=== PATIENT | male | born 1970 | race Caucasian/White ===

== ENCOUNTER 2017-03-11 03:48 | Inpatient (IN) | payer SELFPAY ==
[2017-03-11] MEDS ORDERED: Piperacillin/Tazobactam 3.375 GM in Sodium Chloride 0.9% 100 ML IVPB SCH ×2 (04:30→12:00)
[2017-03-11 05:23] LABS: Lactic Acid - Sepsis 0.6 mmol/L (0.5-2.2)
[2017-03-11] MEDS ORDERED: Nicotine 14 MG PATCH TD PRN (06:22)
[2017-03-11] MEDS ORDERED: Ondansetron ODT 4 MG TAB PO PRN (06:22)
[2017-03-11] MEDS ORDERED: Acetaminophen 325 MG TAB PO PRN (06:22)
[2017-03-11 06:54] VITALS: BMI 21.5
[2017-03-11] MEDS: Sodium Chloride 0.9% 1,000 ML IV SCH ×3 (08:30→20:26)
--- NOTE | 2017-03-11 11:04 | ULT ---
DISTAL HAND SOFT TISSUE ULTRASOUND: History: Concern for abscess. FINDINGS: There is a 2.2 x 1.3 cm residual abscess within the dorsal soft tissues of the right hand. IMPRESSION: No subcutaneous abscess of the right hand. POS: NANH
[2017-03-11] MEDS ORDERED: Famotidine/PF 20 mg/2ml Vial SLOW IVP PRN ×2 (11:28→12:15)
[2017-03-11 11:35] LABS: Amphetamine Detected (NotDetected); Methadone Not Detected (NotDetected); Methamphetamine Detected (NotDetected)
[2017-03-11] MEDS: Vancomycin HCl 1 GM in Premix Bag 1 BAG IVPB SCH (13:17)
--- NOTE | 2017-03-11 14:03 | HP-2 ---
CODE STATUS: FULL. PRIMARY CARE PHYSICIAN: Nan bennett, PCP in [place]. ATTENDING: Alfred Wong M.D. RESIDENT: Andie Kay D.O. HISTORIAN: Patient. CHIEF COMPLAINT: Right hand drainage. HISTORY OF PRESENT ILLNESS: The patient is a 46-year-old male with no past medical history who presented to the ED after being seen in the urgent care setting twice for right hand drainage and associated pain and swelling onset a few days ago. Started out as a small ant bite and initially was treated with topical antibiotics and then Keflex. The redness around the area swelling continued to progress and the patient went back to the ED and was transferred here. He denies any fever at home. No chills. No nausea or vomiting. He was given morphine 4 mg, Zofran 4 mg, vancomycin 2 gm, 1 liter normal saline, and Toradol 30 mg and in our ED was started on Zosyn 3.375 grams daily for now. PAST MEDICAL HISTORY: None. PAST SURGICAL HISTORY: Appendectomy. ALLERGIES: No known drug allergies. MEDICATIONS: None. FAMILY HISTORY: No coronary artery disease. SOCIAL HISTORY: Smokes about 1 pack per day for the last 20 years, alcohol drinks socially, drugs denies. REVIEW OF SYSTEM: A 12-point review of systems was performed and found to be positive for only those mentioned in the HPI. All others were negative. PHYSICAL EXAMINATION: VITAL SIGNS: Blood pressure 137/83, pulse 101, respiratory rate 16, T-max 98.7 , pulse ox 99% on room air and currently is 68.84 kilograms. GENERAL: The patient is alert and oriented x4, in no acute distress and appropriately interactive. HEENT: PERRLA, EOMI. ENT: Oropharynx within normal limits. NECK: Supple, without lymphadenopathy. Does have of the right axilla. CARDIOVASCULAR: Regular rate and rhythm. No murmurs, gallops or rubs. RESPIRATORY: Normal effort. LUNGS: Clear to auscultation bilaterally. SKIN: Warm and dry. ABDOMEN: Soft, nontender. MUSCULOSKELETAL: Structure within normal. Tone within normal limits. NEUROLOGIC: No focal deficits. EXTREMITIES: No clubbing or cyanosis. There is edema from fingertips down to just distal of the elbow in the anterior position. Significant edema from the fingertips to the forearm with associated erythema and 3 inch diameter bruising area with central serous drainage from 3 different sites, it was indurated in this area. LABORATORY DATA: CBC was performed and had white blood cell count of 17,000, hemoglobin 13, hematocrit 24, platelets 268. Chemistry: Sodium 140, potassium 4.4, chloride 107, CO2 of 23, BUN 18, creatinine 1.01, glucose 110, GFR 74, CA 6.0. Lactic acid 0.8 went down to 0.6. ASSESSMENT AND PLAN: 1. Sepsis secondary to acute right hand cellulitis - continue vancomycin and Zosyn, 1 liter normal saline in the emergency department and IV fluids at maintenance concentration. 2. Leukocytosis secondary to #1. 3. Anemia, likely chronic in nature. 4. Thrombophlebitis with the right arm thrombosis. DISPOSITION AND LENGTH OF HOSPITAL STAY: One to two days. Symptomatic medications will be provided. History and physical exam as well as management were discussed with Dr. Alfred Wong. Patient seen on rounds with residents. I agree with tan portions of the H&P, plan as noted above. His hand looks to have some fluid collection and possible necrosis. He believes that he was bitten by and insect, although he also is a substance abuser with methamphetamine. We will treat with antibiotics as noted, but also get hand surgery involved. ALEXANDRE Wong MD [facility] CENTERUrsula
[2017-03-11] MEDS ORDERED: Dexamethasone 20 MG/5 ML VIAL ONE (15:23)
[2017-03-11] MEDS ORDERED: Propofol 200 MG/20 ML VIAL ONE (15:23)
[2017-03-11] MEDS ORDERED: Ketorolac Tromethamine 30 MG/ML VIAL ONE ×2 (15:23→19:17)
[2017-03-11] MEDS ORDERED: Lidocaine 1% PF 5 ML VIAL ONE (15:23)
[2017-03-11] MEDS ORDERED: Ondansetron HCl/PF 4 MG/2 ML Vial ONE (15:23)
[2017-03-11] MEDS ORDERED: Sodium Chloride 0.9% 30 ML ONE (16:51)
[2017-03-11] MEDS ORDERED: Fentanyl 100 MCG/2 ML VIAL ONE ×3 (17:26→19:29)
[2017-03-11] MEDS ORDERED: Ketorolac Tromethamine 30 MG/ML VIAL IM SCH (19:30)
[2017-03-11] MEDS ORDERED: Meperidine HCl/PF 25 MG/ML VIAL IM PRN (19:34)
[2017-03-11] MEDS ORDERED: Promethazine HCl 25 MG/ML VIAL IM PRN (19:35)
[2017-03-11] MEDS ORDERED: Pregabalin 50 MG CAP PO SCH (19:45)
[2017-03-11] MEDS ORDERED: Vancomycin HCl 1 GM in Premix Bag 1 BAG IVPB SCH (21:00)
[2017-03-11] MEDS: Gentamicin Sulfate 80 MG in Premix Bag 1 BAG IVPB SCH (22:06)
[2017-03-11] MEDS: Pregabalin 50 MG CAP PO SCH (22:07)
[2017-03-11] MEDS: Ketorolac Tromethamine 30 MG/ML VIAL IVP SCH (22:07)
[2017-03-12] MEDS: Vancomycin HCl 1 GM in Premix Bag 1 BAG IVPB SCH ×4 (02:29→22:54)
[2017-03-12] MEDS: Ketorolac Tromethamine 30 MG/ML VIAL IVP SCH ×4 (05:04→22:53)
[2017-03-12] MEDS: Gentamicin Sulfate 80 MG in Premix Bag 1 BAG IVPB SCH ×3 (05:04→20:41)
[2017-03-12] MEDS: Sodium Chloride 0.9% 1,000 ML IV SCH ×3 (05:04→15:52)
[2017-03-12] MEDS: Pregabalin 50 MG CAP PO SCH ×3 (05:05→20:42)
--- NOTE | 2017-03-12 06:00 | PDOC.FM ---
- Subjective Subjective: Patient states his hand feels better and he can feel that it is less swollen. He also has admitted that he used meth on Thursday. He states he doesn't normally and shouldn't use that stuff going forward. He denies chest pain, sob, n/v/d. - Objective Vital Signs & Weight: Vital Signs (12 hours) Temp Pulse Resp BP Pulse Ox 03/11/17 21:30 97.9 F 92 20 130/75 98 03/11/17 21:00 96 18 128/78 99 03/11/17 20:30 98 20 131/80 99 03/11/17 20:00 97.7 F 89 20 120/80 97 Weight Weight 68.039 kg I&O: 03/10/17 03/11/17 03/12/17 06:59 06:59 06:59 Intake Total 1640 Balance 1640 Result Diagrams: 03/12/17 05:07 03/12/17 05:07 <Juan Morfin - Last Filed: 03/12/17 08:12> - Objective Vital Signs & Weight: Vital Signs (12 hours) Temp Pulse Resp BP Pulse Ox 03/12/17 08:32 97.9 F 78 18 118/69 96 Weight Weight 150 lb I&O: 03/11/17 03/12/17 03/13/17 06:59 06:59 06:59 Intake Total 1640 Balance 1640 Result Diagrams: 03/12/17 05:07 03/12/17 05:07 <Alfred Wong - Last Filed: 03/12/17 10:42> Phys Exam - Physical Examination HEENT: moist MMs Neck: no nodes, supple Respiratory: no wheezing, clear to auscultation bilateral Cardiovascular: RRR, no significant murmur Gastrointestinal: soft, no distention Musculoskeletal: no edema, pulses present Right forearm/hand bandaged following surgery. Neurological: non-focal, normal sensation, moves all 4 limbs Psychiatric: normal affect, A&O x 3 Skin: no rash <Juan Morfin - Last Filed: 03/12/17 08:12> Dx/Plan (1) Cellulitis of right hand Code(s): L03.113 - CELLULITIS OF RIGHT UPPER LIMB Status: Acute Plan: Dr. Mayfield with Hand Surgery consulted, appreciate his recs -Went for surgery yesterday -Will continue Vancomycin and Gentamicin -Will follow Ortho recs (2) Polysubstance abuse Code(s): F19.10 - OTHER PSYCHOACTIVE SUBSTANCE ABUSE, UNCOMPLICATED Status: Acute Plan: -UDS positive -Counseled on quitting. -Will monitor for signs and symptoms of withdrawal. - Plan Plan: Will continue IV antibiotics <Juan Morfin - Last Filed: 03/12/17 08:12> Attending Addendum - Attending Addendum I personally evaluated the patient and discussed the management with Dr. Morfin I agree with the History, Examination, Assessment and Plan documented above with any addition or exceptions noted below. Patient's hand is better after I&D. He is growing staff. UDS shows methamphetamine, so he may be skin popping. We will continue with Vanc and Gent for now. Switch to po when his wound looks better. <Alfred Wong - Last Filed: 03/12/17 10:42>
--- NOTE | 2017-03-12 06:16 | OP ---
DATE OF SURGERY: 03/11/2017 PREOPERATIVE DIAGNOSIS: Right wrist abscess, over the first dorsal compartment. FINDINGS: Multiloculated well-preserved cavity with gross purulence that was minimum but marked necr osis of tissue down to and surrounding the entire tendons of the first dorsal compartment on the supe rficial layer and retinaculum. PROCEDURE PERFORMED: 1. Incision and drainage of abscess. 2. Debridement of wound to include the following: A. The layers were skin, dermis and epidermis, subcutaneous fat, and the entire abscess cavity. B. Excisional technique. C. We used tenotomy scissors, [place] blade, 11 blade Bard-Drew knife, curette, and then, we irriga beth with 3 liters normal saline and Pulsavac pressure and it was excisional technique. D. There was definite mucopurulence and infection found. CULTURES SENT: Yes, first of the abscess drainage which was purulence and then secondly, most of the abscess cavity itself involving dermis, epidermis, fat, and tissue as well as paratenon. INDICATIONS: The patient reports 3-day onset of what she considers to be a spider bite and then deve lopment of erythema and abscess, but this patient also had very positive drug screening for methamphe tamines and amphetamines, so we feel etiology is not completely confirmed even with the procedure. DESCRIPTION OF PROCEDURE: After the limb was prepped and draped, time out was done appropriately. T he limb was exsanguinated. He then had the previous 4 mm puncture wound found, we made a zigzag inci mario 3 cm proximal, 2.5 cm distal to this site, carried through the skin and subcutaneous tissue, and there was marked induration and maceration, immediate mucopurulence escaped; we cultured this and se nt to lab. Then, we began a series of superficial to deep removal of anything that looked infected, and this included a circumferential area of 2 cm of skin that was 2 cm long followed by the abscess c avity itself subcutaneously all the way around the incision and then down to its depth where it was o n top of the retinaculum. We found the large branches of the superficial radial nerve retracting the m safely and then working around them to do this very intricate dissection. Once this debridement wa s done, the patient had the Pulsavac infectious waste technician to irrigate the wound with 3 liters of normal saline u nder Pulsavac pressure with antibiotics inside. We then sent the specimen off for cultures as we did the , normal saline soaked 4 x 4s x2 were placed in the wound and packed in the interspaces angélica ing it easier for later wound dressing changes. The patient was awakened and left the operating room without evidence of anesthetic or operative complication.
[2017-03-12 06:35] LABS: #Lymphocytes 0.7 thou/uL (1.20-3.40); #Monocytes 0.3 thou/uL (0.11-0.59); #Neutrophils 8.4 thou/uL (1.40-6.50); %Basophils 0.2 % (0.0-1.0); %Eosinophils 0.3 % (0.0-10.0); %Monocytes 2.8 % (0.0-10.0); Hematocrit 33.4 % (42.0-52.0); Red Blood Cell (RBC) Count 3.29 mill/uL (4.70-6.10); White Blood Cell (WBC) Count 9.4 thou/uL (4.8-10.8)
[2017-03-12 06:46] LABS: Anion Gap 9 mmol/L (10-20); BUN (Urea Nitrogen) 14 mg/dL (8.9-20.6); Calc. Creatinine Clearance 106 mL/min (70-130); Calcium 8.8 mg/dL (7.8-10.44); Carbon Dioxide 25 mmol/L (22-29); Chloride 106 mmol/L (98-107); Estimated GFR-MDRD Greater than 90
[2017-03-12] MEDS: HYDROcodone/Acetaminophen 7.5/325 mg Tablet PO PRN (09:16)
[2017-03-12 13:44] LABS: Vancomycin, Trough 8.9 ug/mL
[2017-03-12] MEDS: Morphine 4 MG/ML VIAL SLOW IVP PRN (19:09)
[2017-03-13] MEDS: Sodium Chloride 0.9% 1,000 ML IV SCH ×4 (01:01→20:09)
[2017-03-13] MEDS: Ketorolac Tromethamine 30 MG/ML VIAL IVP SCH ×4 (05:36→22:53)
[2017-03-13] MEDS: Pregabalin 50 MG CAP PO SCH ×3 (05:37→21:13)
[2017-03-13] MEDS: Gentamicin Sulfate 80 MG in Premix Bag 1 BAG IVPB SCH (05:38)
[2017-03-13 05:43] LABS: #Eosinphils 0.2 thou/uL (0.0-0.7); #Lymphocytes 2.1 thou/uL (1.20-3.40); #Monocytes 0.8 thou/uL (0.11-0.59); #Neutrophils 6.6 thou/uL (1.40-6.50); %Basophils 0.5 % (0.0-1.0); %Eosinophils 1.9 % (0.0-10.0); %Lymphocytes 21.9 % (21.0-51.0); %Monocytes 8.1 % (0.0-10.0); Hematocrit 34.2 % (42.0-52.0); Mean Platelet Volume 8.3 fL (7.4-10.4); Red Blood Cell (RBC) Count 3.34 mill/uL (4.70-6.10); White Blood Cell (WBC) Count 9.7 thou/uL (4.8-10.8)
[2017-03-13 06:05] LABS: Anion Gap 9 mmol/L (10-20); BUN (Urea Nitrogen) 14 mg/dL (8.9-20.6); Calc. Creatinine Clearance 107 mL/min (70-130); Calcium 8.5 mg/dL (7.8-10.44); Carbon Dioxide 24 mmol/L (22-29); Chloride 109 mmol/L (98-107); Estimated GFR-MDRD Greater than 90
--- NOTE | 2017-03-13 06:07 | PDOC.FM ---
- Subjective Subjective: Patient had a good night. He states that he is ready to go home. He has had no pain. He denies any chest pain, sob, n/v/d. - Objective Vital Signs & Weight: Vital Signs (12 hours) Temp Pulse Resp BP Pulse Ox 03/12/17 20:00 98 F 95 18 135/76 100 Weight Weight 68.039 kg I&O: 03/11/17 03/12/17 03/13/17 06:59 06:59 06:59 Intake Total 1640 1496 Balance 1640 1496 Result Diagrams: 03/13/17 04:50 03/13/17 04:50 <Juan Morfin - Last Filed: 03/13/17 08:06> - Objective Vital Signs & Weight: Vital Signs (12 hours) Temp Pulse Resp BP Pulse Ox 03/13/17 08:00 98.1 F 79 18 143/90 H 96 Weight Weight 150 lb I&O: 03/12/17 03/13/17 03/14/17 06:59 06:59 06:59 Intake Total 1640 1496 Balance 1640 1496 Result Diagrams: 03/13/17 04:50 03/13/17 04:50 <Alfred Wong - Last Filed: 03/13/17 10:12> Phys Exam - Physical Examination HEENT: PERRLA, moist MMs Neck: no nodes, no JVD, supple Respiratory: no wheezing, clear to auscultation bilateral Cardiovascular: RRR, no significant murmur Gastrointestinal: soft, non-tender, no distention, positive bowel sounds Musculoskeletal: no edema, pulses present Right arm is bandaged from surgery. Neurovascular exam is normal. Neurological: non-focal, normal sensation, moves all 4 limbs Lymphatic: no nodes Psychiatric: normal affect, A&O x 3 Skin: no rash <Juan Morfin - Last Filed: 03/13/17 08:06> Dx/Plan (1) Cellulitis of right hand Code(s): L03.113 - CELLULITIS OF RIGHT UPPER LIMB Status: Acute Plan: Dr. Mayfield with Hand Surgery consulted, appreciate his recs -Went for surgery yesterday -Will continue Vancomycin and Gentamicin -Will follow Ortho recs -Sensitive to Bactrim, will transition to Oral antibiotics and can be discharged with follow up as an outpatient (2) Polysubstance abuse Code(s): F19.10 - OTHER PSYCHOACTIVE SUBSTANCE ABUSE, UNCOMPLICATED Status: Acute Plan: -UDS positive -Counseled on quitting. -Will monitor for signs and symptoms of withdrawal. - Plan Plan: Transition to oral antibiotics and discharge planning can be made from there. <Juan Morfin - Last Filed: 03/13/17 08:06> Attending Addendum - Attending Addendum I personally evaluated the patient and discussed the management with Dr. Morfin I agree with the History, Examination, Assessment and Plan documented above with any addition or exceptions noted below. Patient continues to improve. Surgery wants a wound vac and thinks he might need a skin graft. He will be here overnight. Culture is MRSA sensitive to TMP/ SMZ. He will go home on this for a week. <Alfred Wong - Last Filed: 03/13/17 10:12>
[2017-03-13] MEDS: Morphine 4 MG/ML VIAL SLOW IVP PRN ×2 (09:04→16:59)
[2017-03-13] MEDS: Vancomycin HCl 1 GM in Premix Bag 1 BAG IVPB SCH ×3 (09:06→22:52)
[2017-03-13] MEDS: HYDROcodone/Acetaminophen 7.5/325 mg Tablet PO PRN (11:49)
[2017-03-13 15:32] LABS: Vancomycin, Trough 18.8 ug/mL
[2017-03-13] MEDS: Polyethylene Glycol 3350 17 GM Packet PO PRN (20:09)
[2017-03-14] MEDS: Sodium Chloride 0.9% 1,000 ML IV SCH ×5 (04:14→21:06)
[2017-03-14 05:29] LABS: #Basophils 0.1 thou/uL (0.0-0.2); #Eosinphils 0.3 thou/uL (0.0-0.7); #Lymphocytes 1.9 thou/uL (1.20-3.40); #Monocytes 0.8 thou/uL (0.11-0.59); #Neutrophils 4.8 thou/uL (1.40-6.50); %Basophils 0.8 % (0.0-1.0); %Eosinophils 4.1 % (0.0-10.0); %Lymphocytes 23.7 % (21.0-51.0); %Monocytes 10.3 % (0.0-10.0); Hematocrit 33.6 % (42.0-52.0); Mean Platelet Volume 8.1 fL (7.4-10.4); Red Blood Cell (RBC) Count 3.31 mill/uL (4.70-6.10); White Blood Cell (WBC) Count 7.8 thou/uL (4.8-10.8)
[2017-03-14] MEDS: Ketorolac Tromethamine 30 MG/ML VIAL IVP SCH ×3 (05:39→17:40)
[2017-03-14] MEDS: Pregabalin 50 MG CAP PO SCH ×2 (05:40→15:51)
[2017-03-14] MEDS: Polyethylene Glycol 3350 17 GM Packet PO PRN (05:49)
[2017-03-14 06:49] LABS: Anion Gap 10 mmol/L (10-20); BUN (Urea Nitrogen) 13 mg/dL (8.9-20.6); Calc. Creatinine Clearance 109 mL/min (70-130); Calcium 8.2 mg/dL (7.8-10.44); Carbon Dioxide 25 mmol/L (22-29); Chloride 107 mmol/L (98-107); Estimated GFR-MDRD Greater than 90
--- NOTE | 2017-03-14 07:41 | PDOC.FM ---
- Subjective Subjective: 46 yo M s/p debridement of abscess. Pt has wound dressing in place over distal RUE. He had no acute events overnight. Denies CP, SOB, NVD. Does c/o bloating and constipation. Attempted to talk to the pt about op wound care after wound vac care is established and he is cleared by hand surgeon. Pt became agitated stating "y'all are gonna cause me to lose my damn arm" along with numerous other profanities. It was explained to pt that he would not be sent home in an unstable condition and all wound care amenities would be set up prior to discharge. Throughout the encounter pt began pacing around the room and appeared restless and agitated. - Objective Vital Signs & Weight: Vital Signs (12 hours) Temp Pulse Resp BP Pulse Ox 03/14/17 05:33 99.7 F H 88 18 135/85 95 03/13/17 20:00 97.9 F 92 20 129/77 95 Weight Admit Weight 68.039 kg Weight 68.039 kg I&O: 03/13/17 03/14/17 03/15/17 06:59 06:59 06:59 Intake Total 1496 1749 Balance 1496 1749 Result Diagrams: 03/14/17 04:46 03/14/17 04:46 <Abram Luke - Last Filed: 03/14/17 07:29> - Objective Vital Signs & Weight: Vital Signs (12 hours) Temp Pulse Resp BP Pulse Ox 03/14/17 08:01 98.3 F 80 18 145/87 H 95 03/14/17 08:00 98.3 F 80 18 03/14/17 05:33 99.7 F H 88 18 135/85 95 Weight Admit Weight 150 lb Weight 150 lb I&O: 03/13/17 03/14/17 03/15/17 06:59 06:59 06:59 Intake Total 1496 1749 Balance 1496 1749 Result Diagrams: 03/14/17 04:46 03/14/17 04:46 <Alfred Wong - Last Filed: 03/14/17 11:09> Phys Exam - Physical Examination Constitutional: NAD agitated, restless Respiratory: no wheezing, no rales, no rhonchi, clear to auscultation bilateral Cardiovascular: RRR, no significant murmur, no rub Gastrointestinal: soft, non-tender, no distention, positive bowel sounds edemetous distal rue, wound dressing in place Neurological: non-focal, moves all 4 limbs Deviation from normal: agitated Skin: no rash <Abram Luke - Last Filed: 03/14/17 07:29> Dx/Plan (1) Cellulitis of right hand Code(s): L03.113 - CELLULITIS OF RIGHT UPPER LIMB Status: Acute (2) Polysubstance abuse Code(s): F19.10 - OTHER PSYCHOACTIVE SUBSTANCE ABUSE, UNCOMPLICATED Status: Acute - Plan Plan: -pt is awaiting wound vac and established op wound care -continue IV abx for now -vitals remains stable -leukocytosis resolved -debt management counselor on cessation of drugs as this is likely cause of his extensive cellulitis -once op wound care and wound vac is established, pt is stable for DC, pending surgery recs <Abram Luke - Last Filed: 03/14/17 07:29> Attending Addendum - Attending Addendum I personally evaluated the patient and discussed the management with Dr. Luke I agree with the History, Examination, Assessment and Plan documented above with any addition or exceptions noted below. Patient is much more agitated today. We are concerned about drug withdrawal. Hand is doing reasonably well. We are waiting for instructions from wound care related to the hand and outpatient treatment of the hand. <Alfred Wong - Last Filed: 03/14/17 11:09>
[2017-03-14] MEDS: Vancomycin HCl 1 GM in Premix Bag 1 BAG IVPB SCH ×2 (07:54→15:51)
[2017-03-14] MEDS: Morphine 4 MG/ML VIAL SLOW IVP PRN ×2 (10:08→19:11)
[2017-03-14] MEDS: Bisacodyl 5 MG TAB PO PRN (11:43)
[2017-03-14] MEDS: HYDROcodone/Acetaminophen 7.5/325 mg Tablet PO PRN (17:47)
[2017-03-15] MEDS: Vancomycin HCl 1 GM in Premix Bag 1 BAG IVPB SCH ×4 (00:25→23:17)
[2017-03-15] MEDS: Ketorolac Tromethamine 30 MG/ML VIAL IVP SCH ×5 (00:25→23:17)
[2017-03-15] MEDS: Pregabalin 50 MG CAP PO SCH ×4 (00:28→20:52)
[2017-03-15] MEDS: HYDROcodone/Acetaminophen 7.5/325 mg Tablet PO PRN ×4 (04:51→20:52)
[2017-03-15] MEDS: Sodium Chloride 0.9% 1,000 ML IV SCH ×5 (04:55→23:16)
[2017-03-15 05:46] LABS: #Eosinphils 0.4 thou/uL (0.0-0.7); #Lymphocytes 1.6 thou/uL (1.20-3.40); #Monocytes 0.8 thou/uL (0.11-0.59); %Basophils 0.7 % (0.0-1.0); %Eosinophils 5.3 % (0.0-10.0); %Lymphocytes 23.1 % (21.0-51.0); %Monocytes 11.5 % (0.0-10.0); Hematocrit 35.4 % (42.0-52.0); Mean Platelet Volume 8.4 fL (7.4-10.4); White Blood Cell (WBC) Count 6.8 thou/uL (4.8-10.8)
--- NOTE | 2017-03-15 05:50 | PDOC.FM ---
- Subjective Subjective: Patient doing well this AM. No significant overnight events. He did complain about not getting scheduled pain medications. I informed him that his pain meds were not scheduled so that he could have his pain evaluated periodically. He can ask for pain medications when he needs them. He understood. Patient denies chest pain, shortness of breath, fever, or chills. - Objective MAR Reviewed: Yes Vital Signs & Weight: Vital Signs (12 hours) Temp Pulse Resp BP Pulse Ox 03/14/17 20:00 98.5 F 88 16 131/79 95 Weight Admit Weight 68.039 kg Weight 68.039 kg I&O: 03/13/17 03/14/17 03/15/17 06:59 06:59 06:59 Intake Total 1496 1749 3480 Balance 1496 1749 3480 Result Diagrams: 03/15/17 04:52 03/15/17 04:52 EKG Reviewed by me: No Radiology Reviewed by me: Yes <Ramonita Fabian - Last Filed: 03/15/17 07:37> - Objective Vital Signs & Weight: Vital Signs (12 hours) Temp Pulse Resp BP Pulse Ox 03/15/17 08:00 97.7 F 80 18 142/89 H 94 L 03/15/17 04:00 98.3 F 88 16 151/81 H 95 Weight Admit Weight 150 lb Weight 150 lb I&O: 03/14/17 03/15/17 03/16/17 06:59 06:59 06:59 Intake Total 1749 5560 Balance 1749 5560 Result Diagrams: 03/15/17 04:52 03/15/17 04:52 <Alfred Wong - Last Filed: 03/15/17 09:50> Phys Exam - Physical Examination Constitutional: NAD HEENT: moist MMs, sclera anicteric Neck: supple Respiratory: no wheezing, no rales, no rhonchi, clear to auscultation bilateral Cardiovascular: RRR, no significant murmur Gastrointestinal: soft, non-tender, no distention, positive bowel sounds Musculoskeletal: no edema, pulses present Neurological: non-focal, moves all 4 limbs Psychiatric: A&O x 3 Skin: cap refill <2 seconds Deviation from normal: wound vac in place on RUE. AYALA bandage clean, dry. <Ramonita Fabian - Last Filed: 03/15/17 07:37> Dx/Plan (1) Cellulitis of right hand Code(s): L03.113 - CELLULITIS OF RIGHT UPPER LIMB Status: Acute (2) Polysubstance abuse Code(s): F19.10 - OTHER PSYCHOACTIVE SUBSTANCE ABUSE, UNCOMPLICATED Status: Acute - Plan Plan: - Plan Plan: Cellulitis of Right Hand: -wound vac set up for outpatient -continue IV abx per Dr. Mayfield -vitals remains stable; no signs of systemic infection -leukocytosis resolved -pain control -hand surgeon consulted; appreciate recs Polysubstance abuse: -relationship counselor on cessation of drugs as this is likely cause of his extensive cellulitis Dispo: Will await Dr. Mayfield's recs regarding discharge. Patient may need washout of wound prior to discharge. <Ramonita Fabian - Last Filed: 03/15/17 07:37> Attending Addendum - Attending Addendum I personally evaluated the patient and discussed the management with Dr. Fabian I agree with the History, Examination, Assessment and Plan documented above. <Alfred Wong - Last Filed: 03/15/17 09:50>
[2017-03-15 06:22] LABS: Anion Gap 10 mmol/L (10-20); BUN (Urea Nitrogen) 8 mg/dL (8.9-20.6); Calc. Creatinine Clearance 113 mL/min (70-130); Carbon Dioxide 25 mmol/L (22-29); Chloride 108 mmol/L (98-107); Estimated GFR-MDRD Greater than 90
[2017-03-15] MEDS: Bisacodyl 5 MG TAB PO PRN (08:27)
[2017-03-15] MEDS: Polyethylene Glycol 3350 17 GM Packet PO PRN (08:27)
[2017-03-15] MEDS: Morphine 4 MG/ML VIAL SLOW IVP PRN ×3 (08:27→22:34)
[2017-03-15 15:28] LABS: Vancomycin, Trough 20.2 ug/mL
[2017-03-16] MEDS: HYDROcodone/Acetaminophen 7.5/325 mg Tablet PO PRN ×3 (03:25→15:59)
[2017-03-16] MEDS: Ketorolac Tromethamine 30 MG/ML VIAL IVP SCH ×2 (05:19→12:26)
[2017-03-16] MEDS: Pregabalin 50 MG CAP PO SCH ×3 (05:19→22:25)
--- NOTE | 2017-03-16 06:07 | PDOC.FM ---
- Subjective Subjective: Patient states he had a good night. He states his hand is feeling really good. Dr. Mayfield told him that he will need a washout later today. He should then be able to be discharged on oral antibiotics tomorrow. He denies chest pain, fever, chills, n/v/d. He notes his hand is less swollen and less erythematous. He offers no other complaints at this time. - Objective Vital Signs & Weight: Vital Signs (12 hours) Temp Pulse Resp BP Pulse Ox 03/15/17 20:00 98.1 F 91 16 142/89 H 96 Weight Admit Weight 68.039 kg Weight 68.039 kg I&O: 03/14/17 03/15/17 03/16/17 06:59 06:59 06:59 Intake Total 1749 9860 3240 Balance 1749 5560 3240 Result Diagrams: 03/15/17 04:52 03/15/17 04:52 Phys Exam - Physical Examination HEENT: moist MMs Neck: no nodes, no JVD Respiratory: no wheezing, clear to auscultation bilateral Cardiovascular: RRR, no significant murmur, no rub Gastrointestinal: soft, non-tender, no distention, positive bowel sounds Musculoskeletal: no edema, pulses present Right hand is wrapped in AYALA wrap with wound vac in place. Neurological: non-focal, normal sensation, moves all 4 limbs Lymphatic: no nodes Psychiatric: normal affect, A&O x 3 Skin: no rash Dx/Plan (1) Cellulitis of right hand Code(s): L03.113 - CELLULITIS OF RIGHT UPPER LIMB Status: Acute Plan: Dr. Mayfield with Hand Surgery consulted, appreciate his recs -NPO for washout today. -Will continue Vancomycin -Will follow Ortho recs -Sensitive to Bactrim, will transition to Oral antibiotics and can be discharged with follow up as an outpatient (2) Polysubstance abuse Code(s): F19.10 - OTHER PSYCHOACTIVE SUBSTANCE ABUSE, UNCOMPLICATED Status: Acute Plan: -UDS positive -Counseled on quitting. -Will monitor for signs and symptoms of withdrawal. - Plan Plan: Will follow ortho recs and discharge planning made from there.
[2017-03-16] MEDS: Vancomycin HCl 1 GM in Premix Bag 1 BAG IVPB SCH ×3 (07:54→23:48)
[2017-03-16] MEDS: Morphine 4 MG/ML VIAL SLOW IVP PRN ×3 (07:55→21:30)
[2017-03-16] MEDS: Sodium Chloride 0.9% 1,000 ML IV SCH ×3 (07:58→23:48)
[2017-03-16 09:40] LABS: ALT (SGPT) 48 U/L (8-55); AST (SGOT) 24 U/L (5-34); Alkaline Phosphatase 73 U/L (40-150); Anion Gap 9 mmol/L (10-20); BUN (Urea Nitrogen) 7 mg/dL (8.9-20.6); Bilirubin, Total Less than 0.2 mg/dL (0.2-1.2); Calc. Creatinine Clearance 113 mL/min (70-130); Carbon Dioxide 27 mmol/L (22-29); Chloride 107 mmol/L (98-107); Estimated GFR-MDRD Greater than 90; Globulin 2.9 g/dL (2.4-3.5); Protein, Total 6.3 g/dL (6.0-8.3)
--- NOTE | 2017-03-16 12:02 | ADD-PRG ---
DATE OF SERVICE: 03/16/2017 Mr. George is a pleasant 46-year-old white male patient who was admitted with a severe right hand and arm infection. This required debridement under general anesthesia with the orthopedic surgeon. The hand swelling has greatly improved since his surgery and he continues on broad spectrum antibiotics. He also has a positive UDS and likely has been shooting up drugs intravenously or skin popping. I believe this is likely the cause of his significant abscess formation cellulitis that occurred in his right hand and wrist. He will be discharged on oral antibiotics. I also believe, given his positiv e UDS with severe hand infection that we check him for hepatitis B and C as well as HIV and RPR. His MCV is elevated consistent with either alcoholism or B12, folate deficiency and these will be checke d.
[2017-03-16] MEDS ORDERED: Ketorolac Tromethamine 30 MG/ML VIAL ONE (15:39)
[2017-03-16] MEDS ORDERED: Ondansetron HCl/PF 4 MG/2 ML Vial ONE (15:39)
[2017-03-16] MEDS ORDERED: Lidocaine 1% PF 5 ML VIAL ONE (15:39)
[2017-03-16] MEDS ORDERED: Propofol 200 MG/20 ML VIAL ONE (15:39)
[2017-03-16] MEDS ORDERED: Bacitracin Zinc Ointment 30 gm TUBE ONE (17:10)
[2017-03-16] MEDS ORDERED: Sodium Chloride 0.9% 10 ML ONE (17:11)
[2017-03-16] MEDS ORDERED: Midazolam HCl 2 mg/2 ml Vial ONE (17:19)
[2017-03-16] MEDS ORDERED: Fentanyl 100 MCG/2 ML VIAL ONE ×5 (17:19→20:10)
[2017-03-16] MEDS ORDERED: Bupivacaine/Epinephrine 0.25% 30 ML VIAL ONE (17:58)
[2017-03-17] MEDS: Morphine 4 MG/ML VIAL SLOW IVP PRN ×2 (01:13→04:43)
[2017-03-17] MEDS: Pregabalin 50 MG CAP PO SCH ×2 (06:13→13:37)
--- NOTE | 2017-03-17 06:13 | PDOC.FM ---
- Subjective Subjective: Patient had a good night. Had a long discussion about Hep C test and what that means. He states he did have a history of IV drug use in his late teens and early 20s. He states that he has never been tested for this disease nor has he been told he has the disease. I stressed to him that we do not have the confirmatory test back at this point and that we need to have that to have a definitive answer. He is very interested in getting whatever treatment necessary if he does have the disease. I told him that we need to wait to get the test results back before any more planning can be finished. Otherwise he said his right arm had a little bit of pain this morning following surgery. - Objective Vital Signs & Weight: Vital Signs (12 hours) Temp Pulse Resp BP Pulse Ox 03/17/17 00:00 97.9 F 76 18 147/89 H 95 03/16/17 20:40 77 16 142/88 H 95 03/16/17 20:00 97.4 F L 77 16 95 Weight Admit Weight 68.039 kg Weight 68.039 kg I&O: 03/15/17 03/16/17 03/17/17 06:59 06:59 06:59 Intake Total 5560 5740 2280 Balance 5560 5740 2280 Result Diagrams: 03/15/17 04:52 03/16/17 09:07 Phys Exam - Physical Examination HEENT: moist MMs Neck: no nodes, no JVD Respiratory: no wheezing, clear to auscultation bilateral Cardiovascular: RRR, no significant murmur Gastrointestinal: soft, non-tender, no distention, positive bowel sounds Musculoskeletal: no edema, pulses present Right arm bandaged up to elbow from surgery Neurological: non-focal, normal sensation, moves all 4 limbs Lymphatic: no nodes Psychiatric: normal affect, A&O x 3 Skin: no rash Dx/Plan (1) Cellulitis of right hand Code(s): L03.113 - CELLULITIS OF RIGHT UPPER LIMB Status: Acute Plan: Dr. Mayfield with Hand Surgery consulted, appreciate his recs -Surgery yesterday, will review surgery records when made available. -Will continue Vancomycin -Will follow Ortho recs -Sensitive to Bactrim, will transition to Oral antibiotics and can be discharged with follow up as an outpatient (2) Polysubstance abuse Code(s): F19.10 - OTHER PSYCHOACTIVE SUBSTANCE ABUSE, UNCOMPLICATED Status: Acute Plan: -UDS positive -Counseled on quitting. -Will monitor for signs and symptoms of withdrawal. (3) Hepatitis C antibody positive in blood Code(s): R76.8 - OTHER SPECIFIED ABNORMAL IMMUNOLOGICAL FINDINGS IN SERUM Status: Acute Plan: -Sending out for Hep C RNA for confirmation. -Will have to have outpatient follow up for this. - Plan Plan: Patient can likely be discharged today pending Ortho recs.
[2017-03-17] MEDS: Sodium Chloride 0.9% 1,000 ML IV SCH ×2 (06:17→11:04)
--- NOTE | 2017-03-17 07:36 | OP ---
DATE OF SURGERY: 03/16/2017 PREOPERATIVE DIAGNOSIS: An 8 x 2.5 cm wound, right dorsal radial forearm with no gross infection. FINDINGS: Minimal wound edge necrosis requiring small amount of debridement. PROCEDURE PERFORMED: 1. Debridement of skin edge, intermediate depth down to, but not including the fascia using a. technique. b. No gross infection found. c. Depth dermis and epidermis. d. Instrumentation use: 11 blade knife; Randall blade; tenotomy scissors; and curette; . 2. Partial closure of wound, 5 x 1 cm. 3. Full-thickness skin graft harvested from the ipsilateral forearm closed primarily. SURGEON: Wan Mayfield MD GRAPHICS SPECIALIST: Amadeo Griffith. COMPLICATIONS: None. ESTIMATED BLOOD LOSS: 10 mL or less. INDICATIONS: The patient has had a very severe abscess 6 days ago, once white blood cell count showed excellent healing, he was prepared for surgery after already having had 3 days of VAC treatme nt in 2 days without the VAC using wet to dry. DESCRIPTION OF PROCEDURE: After successful LMA technique, the limb was prepped and draped. Timeout was done appropriately. The patient then had the limb prepped and draped. No tourniquet was applied. We undermined the wound is inspected and found no abscess formation. No exposed paratenon was seen . There was a soft tissue bed of the superficial radial nerve and its branches, veins, arterie s, and muscle belly. We then finished undermined irrigated with 500 mL normal saline solution. There was an area approxim ately 3 cm long by approximately 4-5 mm wide that had necrosis, only dorsal edge the wound, so we res ected this completely using debridement techniques listed above. We then irrigated with another 500 mL normal saline in the undermined area, beginning closure with in terrupted 3-0 nylon simple pattern, which closed approximately 5 x 1 cm, but left us with almost 3.5 x 1.5 cm area, so with this in mind, we outlined a graft that would have this much skin that was appr oximately 5.5 cm long, approximately 1-1.2 cm at its width. Cut it appropriately out to be harvested and defatted and placed in the wound were in excellent fit. We then used bolster stitches of a 3-0 nylon to expand the graft, this included a triangular wedge piece that was too long, which was used t o fill in the remnant. Then once we had 3 bolster sutures on each side of the graft, we then took a 5-0 chromic and ran it circumferentially around both the graft and the small triangular piece that wa s cut. It held it down flat and expanded to fill the defect of the skin. Once this was done, we then prepared to cover the wound. Therefore, we used bacitracin Adaptic on th e graft, bacitratin Adaptic on the incisional part that was closed, and followed by mineral oil soake d cotton balls, and after this, the cotton balls were bolstered over the graft to cover the defect an d the remaining portion that had been closed distal and proximal to this without undue tension. The patient then had a bulky dressing applied, left the operating room without evidence of anesthetic or operative complications.
[2017-03-17] MEDS: Vancomycin HCl 1 GM in Premix Bag 1 BAG IVPB SCH (08:52)
[2017-03-17] MEDS: HYDROcodone/Acetaminophen 7.5/325 mg Tablet PO PRN ×2 (08:53→12:56)
[2017-03-17 09:23] VITALS: BP 124/65; TEMP 98.4
--- NOTE | 2017-03-17 13:34 | ADD-PRG ---
ADDENDUM: DATE OF SERVICE: 03/17/2017 This is an addendum to the note of Dr. Juan Ch. Mr. George had a further wash out of his right hand and wrist from the last night. He is feeling fin e this morning with minimal hand pain. His workup for hepatitis does reveal that in the past, he has had hepatitis B by natural disease and cleared this. He, however, also has hepatitis C with a posit kenyatta quantitative HCV RNA. He was informed of this and will see treatment as an outpatient. He is cu rrently living with his girlfriend here in [place], originally from [place]. Clinically, much improv ed and will be discharged today.
[2017-03-17 14:19] LABS: Folate,Hemolysate 284.1 ng/mL (Not Estab.); Hematocrit 35.1 % (37.5-51.0); RBC Folate Test Component 809 ng/mL (>498)
--- NOTE | 2017-03-17 22:29 | DIS-2 ---
DATE OF ADMISSION: 03/11/2017 DATE OF DISCHARGE: 03/17/2017 PRIMARY CARE PHYSICIAN: Dr. Morfin. ADMITTING ATTENDING: Dr. Silva. DISCHARGE ATTENDING: Dr. Garcia. CONSULTS: Orthopedics, Dr. Mayfield and with the Wound Care team for evaluation and treatment. PROCEDURES: The patient had a soft tissue ultrasound on 03/11/2017 that showed a 2.2 x 1.3 cm residual abscess within the dorsal soft tissues of the right hand. He also underwent an operation by Dr. Mayfield, the incision and drainage of the abscess with debridement of the wound that showed multiloculated , well-preserved cavity with gross purulence that was minimum but marked necrosis of tissue down to and surrounding the entire tendon of the first dorsal compartment on the superficial layer and retinaculum. On 03/16/2017, he went for a second debridement that showed minimal wound edge necrosis, requiring a small amount of debridement. It showed an 8 x 2.5 cm wound of his right dorsal radial forearm with no gross infection. He did have a full-thickness skin graft harvested from the ipsilateral forearm that was closed primarily as well. PRIMARY DIAGNOSES: 1. Cellulitis of the right hand. 2. Polysubstance abuse. 3. Hepatitis C antibody positive in blood. DISCHARGE MEDICATIONS: Include, 1. Clindamycin 300 mg capsule. 2. Ketorolac 10 mg. 3. Hydrocodone and acetaminophen/Beverly 7.5/325 tablet. DISCONTINUED MEDICATIONS: None. HISTORY OF PRESENT ILLNESS AND HOSPITAL COURSE: This is a 46-year-old male with no past medical history, who presented to the ED after being seen in the urgent care setting twice for the right hand drainage and associated pain and swelling onset a few days ago. It started out as a small ant bite and initially was treated with topical antibiotics and then Keflex. The redness around the area swelling continued to progress, and the patient went back to the ED and was transferred here from there. He denies any fevers at home, no chills, no nausea or vomiting. He was given morphine 4 mg, Zofran 4 mg, and vancomycin 2 grams as well as 1 liter normal saline bolus and Toradol 30 mg in our ED and was started on Zosyn at that time. During the hospitalization, we consulted Dr. Mayfield, who took the patient back for an incision and drainage as well as wound debridement with findings above in the procedure section. The patient was then placed on a wound VAC to optimize healing as well as being on vancomycin and gentamicin during this hospitalization. The wound came back with a culture positive MRSA positive culture results, and it also showed sensitivities to vancomycin, Bactrim, tetracycline, rifampin, linezolid, gentamicin, and doxycycline. The patient tolerated the first procedure well and had adequate pain control. Steadily progressed to the point almost of discharge. Dr. Mayfield then reevaluated the patient and saw that the redness and swelling was not improving to the point that was satisfactory, and so he opted for the patient to go back for a second wound debridement on 03/16/2017. The debridement went well. He also underwent a skin graft at that time with a primary closure of that wound. The patient otherwise had no other complications during this hospitalization from a wound standpoint. It was found that the patient had a hepatitis C antibody that was positive and that was sent off for hepatitis C quantitative result that is a send-out that we will be following up with him in the near future. Patient also was found to have a hepatitis B core antibody positive, which means that he did contract hepatitis B at one time, but he was able to clear that disease. His urine drug screen was positive for urine opiates, amphetamines, methamphetamines, benzodiazepines, and cannabinoids. The patient had no other remarkable lab values. The patient otherwise tolerated the procedure well and hospitalization well and was discharged in appropriate condition. DISPOSITION: Stable. DISCHARGE INSTRUCTIONS: 1. Location: He will be discharged home into his own care. 2. Diet will be a regular diet with no restrictions. 3. His activity will be as tolerated with no restrictions. We do recommend he take it easy on his right hand and keep it clean and dry while he is under the care of Dr. Mayfield. Follow up will be with Dr. Mayfield with hand surgery on 03/19/2017, and he has no primary care provider, but if he is to establish with primary care, we would be happy to see him over at [facility] once he has his insurance figured out. We wish him the best of luck. He was counseled extensively on his drug use and the importance of the cessation of drug use, and he says that he is ready to quit. We will follow up him with his hepatitis C result and work with him in the future going forward. DIMITRI
[2017-03-18 11:19] LABS: Hep C PCR-Quant HCV Not Detected IU/mL (.)
== END 2017-03-17 13:54 | disposition home or self-care (01) | DRG 574 ==
LOC: ERS 03:48 → T4-B 04:58
PROVIDERS: ADMIT Family Medicine; ATTEND Family Medicine
PROC: 0JBG0ZZ Excision of Right Lower Arm Subcutaneous Tissue and Fascia, Open Approach (ICD-10-PCS; principal; 2017-03-11)
PROC: 0J9G0ZZ Drainage of Right Lower Arm Subcutaneous Tissue and Fascia, Open Approach (ICD-10-PCS; 2017-03-11)
PROC: 0HRDX73 Replacement of Right Lower Arm Skin with Autologous Tissue Substitute, Full Thickness, External Approach (ICD-10-PCS; 2017-03-16)
PROC: 0HBEXZZ Excision of Left Lower Arm Skin, External Approach (ICD-10-PCS; 2017-03-16)
PROC: 0JBG0ZZ Excision of Right Lower Arm Subcutaneous Tissue and Fascia, Open Approach (ICD-10-PCS; 2017-03-16)
DX: L03.113 Cellulitis of right upper limb (principal); I96 Gangrene, not elsewhere classified; I80.8 Phlebitis and thrombophlebitis of other sites; F15.10 Other stimulant abuse, uncomplicated; D64.9 Anemia, unspecified; S61.531A Puncture wound without foreign body of right wrist, initial encounter; W46.0XXA Contact with hypodermic needle, initial encounter; B95.62 Methicillin resistant Staphylococcus aureus infection as the cause of diseases classified elsewhere; F17.210 Nicotine dependence, cigarettes, uncomplicated; F19.10 Other psychoactive substance abuse, uncomplicated; R76.8 Other specified abnormal immunological findings in serum
CPT/HCPCS: 36415; 36416; 76999; 80048; 80053; 80202; 80306; 82607; 82747; 83605; 85014; 85025; 86704; 86706; 86780; 86803; 87070; 87077; 87186; 87205; 87340; 87389; 87522; 96365; A4216; J1100; J1580; J1885; J2001; J2175; J2250; J2270; J2405; J2543; J2550; J2704; J3010; J3370; J3490; J7050; Q0162; S0028

== ENCOUNTER 2017-03-23 06:53 | Inpatient (IN) | payer SELFPAY ==
[2017-03-23] MEDS ORDERED: Ketorolac Tromethamine 60 MG/2 ML VIAL ONE (07:39)
[2017-03-23] MEDS ORDERED: Promethazine HCl 25 MG/ML VIAL ONE (07:58)
[2017-03-23 08:02] LABS: Hematocrit 42.3 % (42.0-52.0); Mean Platelet Volume 7.9 fL (7.4-10.4); Red Blood Cell (RBC) Count 4.28 mill/uL (4.70-6.10); White Blood Cell (WBC) Count 24.2 thou/uL (4.8-10.8)
--- NOTE | 2017-03-23 08:13 | RAD ---
CHEST 1 VIEW: HISTORY: Chest pain. FINDINGS: No comparison. Cardiac silhouette is magnified by projection. Pulmonary vasculature is unremarkable . Mediastinum is midline. Lucency adjacent to the partially visualized left cardiac margin is favor ed to be related to the posterior aspect of the lower left rib. No lobar consolidation or pneumothor ax are apparent. monitor and storage bin tender leads overlie the chest. IMPRESSION: No active cardiopulmonary abnormalities are demonstrated. POS: MOE
[2017-03-23 08:14] LABS: Lactic Acid - Sepsis 1.6 mmol/L (0.5-2.2)
[2017-03-23] MEDS ORDERED: Morphine 4 MG/ML VIAL ONE (08:42)
[2017-03-23 08:45] LABS: Band 4 % (5-11); Neutrophil 92 % (42-75)
[2017-03-23] MEDS ORDERED: Propofol 200 MG/20 ML VIAL ONE ×2 (08:50→08:51)
[2017-03-23] MEDS ORDERED: Lidocaine 1% PF 5 ML VIAL ONE (08:50)
[2017-03-23] MEDS ORDERED: Succinylcholine Chloride 20 MG/ML 10 ml SYRINGE FS ONE (08:50)
[2017-03-23] MEDS ORDERED: Ondansetron HCl/PF 4 MG/2 ML Vial ONE (08:51)
[2017-03-23] MEDS ORDERED: HYDROmorphone 0.5 MG/0.5 ML SYRINGE ONE ×2 (09:09→10:02)
[2017-03-23 09:55] LABS: Chloride 100 mmol/L (98-107)
[2017-03-23 09:56] LABS: Globulin 3.8 g/dL (2.4-3.5); Protein, Total 8.5 g/dL (6.0-8.3)
[2017-03-23 09:58] LABS: Anion Gap 15 mmol/L (10-20); Bilirubin, Total 0.9 mg/dL (0.2-1.2); Carbon Dioxide 25 mmol/L (22-29)
[2017-03-23 09:59] LABS: Alkaline Phosphatase 71 U/L (40-150); Calc. Creatinine Clearance 0 mL/min (70-130); Estimated GFR-MDRD 65
[2017-03-23 10:00] LABS: BUN (Urea Nitrogen) 20 mg/dL (8.9-20.6)
[2017-03-23 10:01] LABS: AST (SGOT) 21 U/L (5-34)
[2017-03-23 10:02] LABS: ALT (SGPT) 67 U/L (8-55)
--- NOTE | 2017-03-23 10:49 | CT ---
CT ABDOMEN AND PELVIS WITH ORAL AND IV CONTRAST: Date: 03/23/17 HISTORY: Abdominal pain since last night, with shortness of breath and nausea. FINDINGS: The lung bases are unremarkable. The liver, spleen, pancreas, adrenal glands, and right kidney are no rmal. A tiny calcified granuloma is seen in the inferior aspect of the right lobe of the liver. A 1.0 cm cyst is noted in the left renal cortex. No free air or lymphadenopathy is seen. There is a small amount of free fluid in the left upper quadr ant, gastrohepatic ligament, and in the pelvis. A 1.2 cm calcified gallstone is present. The small bowel loops are not abnormally dilated. There are vascular calcifications without evidence of aneurysmal dilatation of the abdominal aorta. No osteoblastic or osteolytic lesions are seen. IMPRESSION: 1. Cholelithiasis. 2. Small left renal cyst. 3. Nonspecific free fluid in the abdomen and pelvis. POS: C
--- NOTE | 2017-03-23 10:55 | CT ---
CT PULMONARY ANGIOGRAM WITH IV CONTRAST AND 3D POSTPROCESSING: Date: 03/23/17 HISTORY: 46-year-old male with dyspnea, abdominal pain, and nausea. FINDINGS: There is good contrast opacification of the pulmonary arterial vasculature without filling defects to suggest pulmonary embolism. No thoracic aortic aneurysm or dissection is seen. No pleural or pericar dial effusions are identified. No pneumothoraces, focal areas of consolidation, lung nodules, or mass es are identified. No osteolytic or osteoblastic changes are seen. Upper abdominal tomograms demonstr ate free fluid in the left upper quadrant. IMPRESSION: No CT evidence of PE. POS: C
--- NOTE | 2017-03-23 12:44 | ULT ---
GALLBLADDER ULTRASOUND: DATE: 03/23/17. COMPARISON: None. HISTORY: Right upper quadrant/epigastric pain. TECHNIQUE: Multiplanar, ferrell scale, sonographic imaging of the right upper quadrant provided. FINDINGS: The pancreas is obscured by bowel gas. The common bile duct measures 6 mm, within normal limits. There is a mobile gallbladder stone measuring 1.4 cm. Nonspecific small volume free fluid is noted adjacent to the inferior aspect of the left lobe of the liver. The reconciling clerk reports a negative Carter's sign. There is no gallbladder wall thickening. The right kidney measures 11.1 cm in craniocaudal dimension and demonstrates no stone, hydronephrosis , or mass. IMPRESSION: Cholelithiasis. No sonographic evidence of cholecystitis or biliary dilatation. There is nonspecifi c small volume free fluid adjacent to the left lobe of the liver, which may be inflammatory in nature . Clinical correlation required. This could be better assessed via CT as clinically indicated. POS: MOE
[2017-03-23] MEDS ORDERED: Lorazepam 2 MG/ML VIAL ONE (12:57)
[2017-03-23 13:47] LABS: Acetaminophen Less than 6.0 mcg/mL (10.0-30.0); Salicylate Less than 8.0 mg/dL (15.0-30.0)
[2017-03-23 15:25] LABS: Bilirubin Negative (Negative); Blood, Urine Negative (Negative); Glucose, Urine (Dipstick) Negative (Negative); Ketone, Urine Trace mg/dL (Negative); Nitrite Negative (Negative); Protein, Urine (Dipstick) Trace mg/dL (Neg-Trace); Urobilinogen 0.2 mg/dL (0.2-1.0)
--- NOTE | 2017-03-23 15:33 | CON ---
DATE OF CONSULTATION: 03/23/2017 CHIEF COMPLAINT: Abdominal pain. HISTORY OF PRESENT ILLNESS: Mr. George is a 46-year-old man who was admitted through the emergency r oom today with abdominal pain. Patient has been using methamphetamine and currently is agitated and constantly moves his extremities around and has been getting up and walking at times and is unable to give any coherent history. He can tell me his name, but not the location or the year. When I did a sk his location, he mumbles something uninterpretable to which his girlfriend said was some stripped joint. He has apparently had some abdominal pain, but he is unable to elaborate on this further. He has had gagging in the emergency room, but I am not aware of any other vomiting. Otherwise, it is u nknown if he has had diarrhea, constipation, or fever. PAST MEDICAL HISTORY: Otherwise, taken from the chart. He was just in the hospital recently and und erwent surgery for a hand infection. He was discharged on ketorolac and hydrocodone. His girlfriend reported they did not fill the ketorolac due to cost. She does think that he might have some gas or constipation from the hydrocodone. The patient has a CT scan performed in the ER, which showed some free fluid in the abdomen. His girlfriend seems to think he has complained more of upper abdominal pain. PAST MEDICAL HISTORY: 1. Recent infection of the right hand. 2. Polysubstance abuse. 3. History of hepatitis C antibody positive. PAST SURGICAL HISTORY: Recent hand surgery, appendectomy. FAMILY HISTORY: Negative for GI malignancies. SOCIAL HISTORY: He smokes a pack a day. He drinks alcohol reportedly socially and has been using me thamphetamines within the last few days. ALLERGIES: No known drug allergies. MEDICATIONS: [place]. He also had been on antibiotics recently in the hospital. REVIEW OF SYSTEMS: Not obtainable as the patient is not able to answer questions appropriately. He is awake, alert. PHYSICAL EXAMINATION: GENERAL: He is awake and alert and answers some questions, but really did not give any details of hi s medical history VITAL SIGNS: His pulse in the 150s. He is afebrile. HEENT: Eyes have no scleral icterus. Oropharynx is clear, without lesions. NECK: No cervical or supraclavicular lymphadenopathy. LUNGS: Clear to auscultation bilaterally. HEART: Tachycardic. ABDOMEN: Firm, but he is sitting up and he is tense all over and really physical exam is not helpful in his abdomen at this point. EXTREMITIES: No lower extremity edema. LABORATORY DATA: White blood cell count 24.2, hemoglobin 14.2, platelets 393, creatinine 1.19, bilir ubin 0.9, AST 21, ALT 67, alkaline phosphatase 71, [id number]. His urine tox screen from 03/11/2017 was positive for opioids, amphetamines, methamphetamines, benzod iazepines, and cannabinoids. IMPRESSION: Upper abdominal pain with some gagging in the ER and CT scan showing some free fluid. R ecent use of nonsteroidal anti-inflammatory drugs per history for hand infection. Concern is for ulc er which could be nonsteroidal anti-inflammatory drug related or ischemic from methamphetamines. We discussed his case with General Surgery, Dr. Rene. We will follow through with upper endoscopy to evaluate this further. RECOMMENDATIONS: 1. EGD. 2. Proton pump inhibitor.
[2017-03-23 15:41] LABS: Amphetamine Detected (NotDetected); Methadone Not Detected (NotDetected); Methamphetamine Detected (NotDetected)
[2017-03-23] MEDS ORDERED: ISOVUE-370 76%-LOCM 1 ML ONE (17:00)
[2017-03-23] MEDS ORDERED: Iopamidol 370 76% 50 ML VIAL FS ONE (17:00)
[2017-03-23] MEDS ORDERED: Midazolam HCl 2 mg/2 ml Vial ONE (17:22)
[2017-03-23] MEDS ORDERED: Fentanyl 100 MCG/2 ML VIAL ONE ×2 (17:23→18:41)
[2017-03-23] MEDS ORDERED: Haloperidol Lactate 5 MG/ML VIAL ONE (17:25)
--- NOTE | 2017-03-23 17:41 | CON ---
DATE OF CONSULTATION: 03/23/2017 CHIEF COMPLAINT: Abdominal pain. HISTORY OF PRESENT ILLNESS: This is a 46-year-old male who was seen in the emergency room with a his tory complaining of some abdominal pain evaluated earlier today by Dr. Osorio and found to have sever e upper abdominal pain, had labs and a CAT scan which revealed elevated white blood cell count. His CAT scan shows some fluid in the upper abdomen around the gastrohepatic ligament. There is no obviou s free air. The patient notes chronic abdominal pain. He was recently discharged from the hospital after having had a hand infection and has been taken a lot ibuprofen and his significant other in the room with him admits that he takes lots of "street drugs." She denies that he has had anything in t he last 3 days. She states that he has been complaining of lots of bloating over the last few days a nd thinks he may be constipated. According to ER physician, Dr. Osorio, the patient did leave for 45 minutes during his workup this morning and came back acting more strange. Right now, the patient's history is difficult. The patient is not making much sense in his thought process and not able to fo rm complete sentences, although he wakens at times and smiles. Medical history is obtained from [facility] from previous admission on 03/11/2017. PAST MEDICAL HISTORY: Otherwise, he denies. PAST SURGICAL HISTORY: Appendectomy. MEDICINES TAKEN DAILY AT HOME: He has been taking ibuprofen. ALLERGIES: No known drug allergies. SOCIAL HISTORY: There is smoking in the previous medical record. There is also methamphetamine, amp hetamine, benzos and marijuana on his urine drug screen. REVIEW OF SYSTEMS: Unable to obtain. PHYSICAL EXAMINATION: VITAL SIGNS: His heart rate is 145, his blood pressure is normal at 105/76. He is afebrile. Respir ations are normal at 16. HEENT: Sclerae are anicteric. Oropharynx clear. CHEST: Obvious lymphadenopathy. HEART: Regular rate, but normal rhythm. His heart is increased rate, regular rhythm without murmur. CHEST: Clear. ABDOMEN: Soft. He does act like he is tender in the upper abdomen, but no guarding or rebound. LABORATORY DATA: White blood cell count is 24, hemoglobin 14, platelets are 393. Sodium 136, potass ium 4.3, creatinine 1.19. Bilirubin is normal, ALT is 67 and is slightly abnormal. Lipase normal at 18. Urine, trace ketones. Toxicology positive for amphetamines, methamphetamines, cannabinoids, op iates, negative for alcohol, salicylates. LABORATORY DATA AND X-RAY FINDINGS: CT shows fluid at the gastrohepatic ligament. My review of the CT shows question of inflammatory change in the area of the duodenum and stomach. ASSESSMENT: 1. Upper abdominal pain. 2. History of drug abuse, now appears to be under the influence of something he may have which had j ust ingested during his break that he took from being in the emergency room. 3. History of right hand infection. PLAN: Dr. Walden has seen. He could have a stomach ulcer, likely it needs admission and supportive c are. EGD to rule out ulcerative changes or ischemic changes to the stomach. We will follow with you.
[2017-03-23] MEDS ORDERED: Acetaminophen 325 MG TAB PO PRN (19:33)
[2017-03-23] MEDS ORDERED: Bisacodyl 5 MG TAB PO PRN (19:33)
[2017-03-23] MEDS ORDERED: Acetaminophen 650 MG Suppository PR PRN (19:33)
[2017-03-23] MEDS ORDERED: Ondansetron HCl/PF 4 MG/2 ML Vial IVP PRN ×2 (19:33→20:04)
[2017-03-23] MEDS ORDERED: Sodium Chloride 0.9% 1,000 ML IV SCH (19:33)
[2017-03-23] MEDS ORDERED: Calcium Carbonate 500 MG ChewTAB PO PRN (19:33)
[2017-03-23] MEDS ORDERED: Bisacodyl 10 MG SUPP PR PRN (19:33)
[2017-03-23] MEDS ORDERED: Ondansetron ODT 4 MG TAB PO PRN (19:33)
--- NOTE | 2017-03-23 19:52 | HP ---
DATE OF ADMISSION: 03/23/2017 For full history and physical details, please see Dr. Fernando Parker's history and physical. Portions of the history and physical have been performed by myself and I am in agreement with this plan as james reid. HISTORY OF PRESENT ILLNESS: This patient is a 46-year-old gentleman with history of polysubstance ab use and hepatitis C and recent hospitalization for arm cellulitis who presents to the emergency room today after 1 day episode of abdominal pain. At the time of our exam, the patient was altered and no t necessarily responsive to questioning. Therefore, most of the history was obtained from the ER chantel rts and the patient's girlfriend. All they can report is that the patient began complaining of sever e abdominal pain last night. Unsure if any nausea, vomiting, or diarrhea has occurred. He has prese nted to the emergency room today and severe abdominal pain and required multiple doses of narcotic pa in control with minimal relief. He was in his normal mentation when he was then eloped from the [facility] room. Upon his return, he was found to be altered and was only oriented to person. At the clive e of my exam, the patient was resting comfortably in overall nonresponsive, though he was withdrawing to pain and was able to protect his airway. Other historical details are unknown at this time. PHYSICAL EXAMINATION: VITAL SIGNS: Reveals temperature of 98.2, pulse 133, blood pressure 108/78, respirations 24, O2 satu rations 97% on room air. GENERAL: The patient was comfortable and snoring. He was in no acute distress. He was minimally re sponsive to questioning, though he would withdraw to pain and look around the room during that. HEENT: Pupils were constricted and sluggishly reactive to light. Extraocular movements intact. Poo r dentition. Otherwise, normal. NECK: Supple, without lymphadenopathy. LUNGS: Clear bilaterally to auscultation. CARDIOVASCULAR: Revealed tachycardic rate, regular rhythm, no murmurs, rubs or gallops. ABDOMEN: Difficult as the patient was overall nonresponsive. However, he did seem to be in quite a bit of discomfort with palpation of the abdomen. Bowel sounds are present x4 quadrants. No abdomina l distension noted. EXTREMITIES: Revealed no abnormalities. Pulses were symmetrical in the upper and lower extremities bilaterally. There was no clubbing, cyanosis or edema. NEUROLOGIC: Unable to assess at this time. LABORATORY FINDINGS: Pertinent findings revealed elevated white count 24.2 with 92% neutrophils. Th e patient is also known to be hyperglycemic at 123. Rest of his CBC and basic metabolic profile were normal. The patient had a mild elevation of his ALT to 67. The patient also had a positive urine d rug screen consisting of methamphetamines as well as marijuana. IMAGING: Ultrasound showed cholelithiasis and possible free fluid near the left lobe of liver. Abdo men and pelvis CT showed nonspecific free fluid in the abdomen, but no free air and no concern for in fection. ASSESSMENT AND PLAN: This is a 46-year-old gentleman with a history of polysubstance abuse with rece nt onset abdominal pain. 1. In regards to patient's abdominal pain currently unknown etiology. General Surgery as well as [facility] stroenterology has been consulted from the ER. The plan right now is for patient to go back for endo scopic evaluation for possible ulcer and/or perforation. Based on the CT results, it does not appear that the patient has a perforation, though we will await further recommendations from GI. The patie nt will be placed on PPI. If endoscopic evaluation is negative, await further recommendations from G eneral Surgery. Due to patient's profound elevation in white count as well as neutrophilia, the edson ent will be placed on empiric antibiotics consisting of Zosyn as well as vancomycin. The patient is currently afebrile with this elevation in white count, would expect some degree of infection. 2. Tachycardia this is possibly related to the patient's methamphetamine abuse which quite possibly may have occurred during the period of the elopement from the emergency room earlier today as he had a change in mental status during that time. We will monitor and ensure this is not to worsen. The p atient will be fluid hydrated and symptomatic treatment will be given.
[2017-03-23] MEDS ORDERED: Piperacillin/Tazobactam 3.375 GM in Sodium Chloride 0.9% 100 ML IVPB SCH (20:00)
[2017-03-23] MEDS ORDERED: Propofol 1,000 MG/100 ML VIAL IV ONE (20:00)
[2017-03-23] MEDS ORDERED: Morphine 4 MG/ML VIAL SLOW IVP PRN ×3 (20:04→20:30)
[2017-03-23] MEDS ORDERED: Promethazine HCl 25 MG/ML VIAL IM PRN (20:04)
[2017-03-23] MEDS ORDERED: Sedation Protocol FS ONE (20:04)
[2017-03-23] MEDS ORDERED: Dextrose 50% Abboject 50 ML SYRINGE SLOW IVP PRN (20:04)
[2017-03-23] MEDS ORDERED: Dextrose 5% in Water 1,000 ML IV PRN (20:04)
[2017-03-23] MEDS ORDERED: Lorazepam 2 MG/ML VIAL SLOW IVP PRN (20:04)
--- NOTE | 2017-03-23 20:13 | OP ---
DATE OF PROCEDURE: 03/23/2017 PROCEDURE: Esophagogastroduodenoscopy with biopsy. PREOPERATIVE DIAGNOSIS: Epigastric pain. OPERATIVE NOTE: Informed consent was obtained from the patient's mother. The patient was sedated wi th general anesthesia since he was swelling and agitated. The endoscope was advanced easily to the s econd portion of the duodenum and retroflexion was performed in the stomach. The esophagus was nisreen l. The stomach was normal including retroflexed views. The pylorus was normal. There was an ulcer on the anterior wall of the first portion of the duodenum. There was a hole in the base of this ulce r that goes beyond the wall of the duodenum. The second portion of the duodenum was normal. Biopsie s were obtained from the stomach to rule out H. pylori. IMPRESSION: Perforated duodenal ulcer. In light of the ongoing tachycardia and high white blood kobi l count and abdominal pain. CT scan also showed free fluid in the abdomen. RECOMMENDATIONS: Proceed with surgery. This was discussed with Dr. Rene and Dr. Carrasco. These findings were also discussed with the patient's mother and she consents to proceed with surgery.
[2017-03-23 20:16] VITALS: BMI 20.7
[2017-03-23] MEDS ORDERED: Fentanyl 20 MCG/ML 250 ML IVPB SCH (20:19)
[2017-03-23] MEDS ORDERED: DISCONTINUE PREVIOUS NARCOTIC PAIN MEDICATIONS AND BENZODIAZEPINES FS SCH (20:19)
[2017-03-23 20:20] LABS: Oxyhemoglobin 96.6 % (94.0-97.0); Sodium 139 mmol/L (135-148)
[2017-03-23 20:21] LABS: Mechanical Tidal Volume 500 ml; Modified Allen's Test POSITIVE; Spontaneous Rate 2 min; Vent YES
[2017-03-23 20:22] LABS: Mode SIMV; Pressure Support 10 cmH2O
[2017-03-23] MEDS: D5 1/2 NS w/20 mEq KCL 1,000 ML IV SCH (20:33)
[2017-03-23] MEDS: Pantoprazole 40 MG VIAL IVP SCH (20:33)
[2017-03-23] MEDS: Vancomycin HCl 1 GM in Premix Bag 1 BAG IVPB SCH (20:34)
[2017-03-23] MEDS: Lorazepam 2 MG/ML VIAL SLOW IVP PRN ×2 (20:34→22:44)
[2017-03-23] MEDS: Fluconazole In NaCl,Iso-Osm 200 MG in Premix Bag 1 BAG IVPB SCH ×2 (20:36)
[2017-03-23] MEDS ORDERED: Pantoprazole 40 MG VIAL IVP SCH (21:00)
--- NOTE | 2017-03-23 21:39 | RAD ---
PORTABLE CHEST: Date: 03-23-17 Provided Clinical History: Post op. FINDINGS: Comparison is made with examination performed earlier same date. Cardiac and mediastinal silhouette are unchanged in appearance. Interval placement of endotracheal tu be with tip terminating in the region of the thoracic inlet. Interval placement of enteric catheter, which is below the diaphragm. No focal consolidation, pleural fluid, or pneumothorax apparent. IMPRESSION: Interval intubation and enteric catheter placement. POS: [facility]
[2017-03-23] MEDS: Propofol 1,000 MG/100 ML VIAL IV PRN (22:44)
--- NOTE | 2017-03-23 23:31 | HP ---
DATE OF CONSULTATION: 03/23/2017 REQUESTING PHYSICIAN: Dylan Mix, nurse practitioner dictating for Dr. Amadeo Rene. HISTORY OF PRESENT ILLNESS: A 46-year-old male, who presented to the ER today via EMS with complaints of abdominal pain since last night. The patient was recently discharged from the hospital on 03/17/2017 after he was admitted with abscess on the right hand for which he underwent I&D of the abscess by Dr. Mayfield. He was discharged with medications that included clindamycin, ketorolac, and hydrocodone. The patient also has history significant for methamphetamine use. He is agitated, continually moving, and speaking unintelligibly during exam. He is unable to give any history. Girlfriend is at bedside and states she is unsure when his last methamphetamine use was. She reports that he began complaining of abdominal pain one day ago. He is unable to elaborate on the abdominal pain. He is unable to describe the quality, intensity, or location. Clinical and diagnostic workup included abdominal CT scan which identified some free fluid in the abdomen. White blood cell count of 24.2. We have been consulted to evaluate for the need for urgent surgical intervention. PAST MEDICAL HISTORY: The patient is unable to give any past medical history. Review of the chart shows past medical history to be: 1. Recent infection of right hand. 2. Polysubstance abuse. 3. History of hepatitis C antibody positive. PAST SURGICAL HISTORY: Recent hand surgery, appendectomy. SOCIAL HISTORY: Positive for tobacco use, positive for alcohol use, positive for methamphetamine use. ALLERGIES: No known drug allergies. MEDICATIONS: 1. Hydrocodone. 2. Ketorolac. 3. Clindamycin. It should be noted that girlfriend reports that the patient may be taking other medications unknown to her. REVIEW OF SYSTEMS: The patient is not able to give accurate review of systems. He is awake and alert and answers some questions, but is not able to give accurate information. PHYSICAL EXAMINATION: VITAL SIGNS: Blood pressure 111/96, pulse 148, respirations 22. Pain, unable to write. O2 sat 96% on room air. GENERAL: The patient is seen sitting on ER stretcher. He is constantly agitated and moving around. He is speaking although sometimes incoherently. ABDOMEN: The patient will not remain still or lie down for accurate abdominal examination. He does express pain when abdomen is palpated. LABORATORY DATA: WBC 24.2, hemoglobin 14.2, hematocrit 42.3, platelets 393. Chemistry: Sodium 136, potassium 4.3, chloride 100, carbon dioxide 25, anion gap 15, BUN 20, creatinine 1.19, glucose 123. Toxicology positive for opiates, amphetamine, methamphetamine, cannabinoids. ASSESSMENT: This is a 46-year-old male with complaints of abdominal pain and CT scan showed some free fluid as well as significant leukocytosis. He was prescribed NSAIDS when he was discharged from the hospital recently. He is also a current user of methamphetamine. He is at risk for NSAID induced ulcer as well as bowel ischemia from methamphetamine use. He is currently being evaluated by Dr. Rio Walden of GI who plans endoscopy. We are in agreement with that plan and recommend continuation of that plan along with IV antibiotics. Surgical intervention will be considered should the patient's clinical condition deteriorate and warrant exploratory surgery. The patient was seen and examined with Dr. Rene who is in agreement with the assessment and plan. Thank you for this consultation. DIMITRI
[2017-03-23] MEDS ORDERED: cefOXitin Sodium 1 GM in Sodium Chloride 0.9% 100 ML IVPB SCH (23:59)
[2017-03-24] MEDS: cefOXitin Sodium 1 GM, Syringe 0.5 ML in Sterile Water 10 ML SLOW IVP SCH ×5 (00:01→23:19)
[2017-03-24 04:58] LABS: ALT (SGPT) 47 U/L (8-55); AST (SGOT) 23 U/L (5-34); Alkaline Phosphatase 56 U/L (40-150); Anion Gap 13 mmol/L (10-20); BUN (Urea Nitrogen) 32 mg/dL (8.9-20.6); Bilirubin, Total 0.5 mg/dL (0.2-1.2); Calc. Creatinine Clearance 51 mL/min (70-130); Carbon Dioxide 22 mmol/L (22-29); Chloride 104 mmol/L (98-107); Estimated GFR-MDRD 45; Globulin 3.3 g/dL (2.4-3.5); Protein, Total 7.1 g/dL (6.0-8.3)
[2017-03-24 05:38] LABS: Band 24 % (5-11); Hematocrit 35.7 % (42.0-52.0); Macrocytosis SLIGHT = 6-15 cells (100X) (0-5/hpf); Mean Platelet Volume 8.4 fL (7.4-10.4); Neutrophil 69 % (42-75); Red Blood Cell (RBC) Count 3.49 mill/uL (4.70-6.10); White Blood Cell (WBC) Count 33.7 thou/uL (4.8-10.8)
[2017-03-24] MEDS: D5 1/2 NS w/20 mEq KCL 1,000 ML IV SCH (05:40)
[2017-03-24] MEDS: Propofol 1,000 MG/100 ML VIAL IV PRN ×4 (06:09→23:43)
[2017-03-24] MEDS: Sodium Chloride 0.9% 1,000 ML IV SCH ×3 (06:14→18:00)
--- NOTE | 2017-03-24 06:27 | HP-2 ---
CODE STATUS: FULL. PRIMARY CARE PHYSICIAN: [facility] Call bounce back. ATTENDING: Dr. aHn Triana. RESIDENT: Fernando Parker M.D., PGY-1. CHIEF COMPLAINT: Abdominal pain. HISTORIAN: The nursing staff who got the history from his girlfriend. HISTORY OF PRESENT ILLNESS: This is a 46-year-old man who came in kind of altered mental status and abdominal pain. The nurse said when he first came in , he was somewhat responsive, cooperative. He is definitely very fidgety, complaining of abdominal pain and was definitely moving around. She then said that at that time they had given him Phenergan, 1 fluid bolus, and morphine. Then, a couple hours later, security found him out in the parking lot. At this time, they gave him 0.5 x 3 times of Dilaudid and gave him 2 times of Ativan as he was acting more agitated, he was more out of it, not with it, not very cooperative, answering questions. He only knew that he was at the hospital, oriented x1, but he was still complaining of abdominal pain, was very tense when you got close to touching his belly, was still fidgety. At this time, the ER placed him in 4-point restraints. He was not able to answer really any questions. REVIEW OF SYSTEMS: Unable to obtain as he was not answering questions appropriately. PAST MEDICAL HISTORY: He did have a recent bout of cellulitis in which he had a surgery. PAST SURGICAL HISTORY: Appendectomy. ALLERGIES: No known drug allergies. MEDICATIONS: He was recently discharged on clindamycin 300 mg, ketorolac 10 mg , hydrocodone and acetaminophen 7.5/325 tablets, but we are not sure if he is taken them as he is not answering questions. FAMILY HISTORY: Unable to obtain. SOCIAL HISTORY: One pack per day smoker for 20 pack years. Alcohol socially. Drugs, not able to determine as he was altered but likely had taken some form of drugs. Has a history of polysubstance abuse. PHYSICAL EXAMINATION: VITAL SIGNS: Blood pressure is 111/96, pulse is 148, respirations 20, temperature 98.0, pulse oximetry 96% on room air, current weight 77 kilograms. GENERAL: He is alert, but oriented only x1 to place. Well-developed, thin, not appropriately interactive, not answering questions. EYES: PERRLA. His pupils were dilated, but reactive. ENT: His oropharynx had poor dentition. NECK: Supple, no lymphadenopathy, no thyromegaly. CARDIOVASCULAR: Regular rhythm. He was a little bit fast, tachycardic. No murmurs, no gallops. Radial pulses, pedal pulses palpated bilaterally. RESPIRATORY: He had increased breathing effort, no retractions. LUNGS: Clear to auscultation bilaterally. SKIN: Warm and dry. No cyanosis or lesions. ABDOMEN: Very firm. He is very tender to palpation most in the right upper quadrant but kind of all over in all quadrants. He did have a very tender right upper quadrant, really hard to assess for Carter's. Bowel sounds were positive in all 4 quadrants. No masses or distention. EXTREMITIES: Moves all extremities bilaterally. The structure was within normal limits. Full range of motion. There was no sign of like a cellulitis infection or any sign of recurrent infection where he had previously been treated for at his previous admission. NEUROLOGIC: No focal neuro deficits. PSYCHIATRIC: He was agitated and needed to be put in 4-point restraints. LABORATORY DATA: White blood cell count was 24.2, hemoglobin was 14.2, hematocrit was 42.3, MCV was 98.4, platelets were 393. Sodium was 136, potassium was 4.3, chloride was 100, carbon dioxide 25, BUN was 20, creatinine was 1.19, glucose is 123, calcium is 11, total protein 8.5, albumin 4.7, total bilirubin was 0.9, AST was 21, ALT was 67, alkaline phosphatase was 71. Lipase was 18. Lactic acid was 1.6. The only thing that came back on the UDS was salicylates 8.0, acetaminophen 6.0, and plasma alcohol of 10. He had 92% neutrophils. Chest x-ray showed no active cardiopulmonary process. CTA showed no evidence of PE. CT abdomen and pelvis showed cholelithiasis, small left renal cyst and nonspecific free fluid in the abdomen and pelvis. Abdomen ultrasound showed no cholecystitis or biliary dilatation, did show cholelithiasis, showed nonspecific small volume of free fluid adjacent to the left lobe of liver and some inflammatory changes. ASSESSMENT AND PLAN: 1. Cholelithiasis versus cholecystitis versus abdominal infection. Dr. Walden with GI and Dr. Rene with General Surgery were consulted by the ER doctor. His white blood cell count is elevated, but he has been afebrile. He did have a diffuse abdominal pain and really severe right upper quadrant pain. We will follow recs by the specialist. Plan is by Dr. Walden to go to EGD to assess for peptic ulcer. Plan for a scope today. We will start him on Zosyn for an abdominal infection. We will also start him on vancomycin as he is a known drug user and continue to monitor vital signs and await recs. 2. Polysubstance abuse either intoxicated or detoxing. We will put him on the ASE protocol. We will await for further UDS results as when seeing him in the ER, they had just gotten urine from his [place]. We will adjust medicine for detox or intoxication accordingly. 3. Elevated white blood cell/leukocytosis may be possibly due to cholecystitis or infection as listed above. Blood cultures are pending. Urine cultures will be pending. We will recheck a CBC in the a.m. He is on vancomycin and Zosyn. Antibiotics as planned above and we will continue to monitor. 4. Deep venous thrombosis prophylaxis. We will put him on mechanical scd's for now as he might be going to surgery. We will not start Lovenox at this time. [facility]
[2017-03-24 06:58] LABS: Oxyhemoglobin 95.2 % (94.0-97.0); Sodium 136 mmol/L (135-148)
[2017-03-24 07:02] LABS: Mechanical Tidal Volume 500 ml; Mode SIMV; Modified Allen's Test POSITIVE; Pressure Support 10 cmH2O; Vent YES
--- NOTE | 2017-03-24 07:27 | ADD-CON ---
ADDENDUM This is an addendum to the consultation dictated by Dr. Rene. HISTORY OF PRESENT ILLNESS: Mr. George is a 46-year-old male who was seen earlier in the day in the emergency room by Dr. Rene and the admission orders were written by the Family Practice Residency. The patient had some degree of abdominal pain with marked leukocytosis and an unreliable abdominal exams secondary to what appeared to be obvious drug use. The patient was seen by Dr. Walden and upper GI endoscopy was recommended. At the time of his upper endoscopy, Dr. Walden noted a deep penetrating duodenal ulcer. I was consult ed for further evaluation regarding this. On examination, the patient is tachycardic with a pulse of 124. He is intubated, had just completed his upper endoscopy. His abdomen is mildly distended, but difficult to examine secondary to general anesthesia. LABORATORY DATA: White blood cell count is elevated at 24.2 with hemoglobin of 14.2. ASSESSMENT: Patient with severe abdominal pain, leukocytosis, tachycardia, free fluid within the abd omen, evidence of an ulcer in the duodenum. PLAN: I recommend emergent exploratory laparotomy. There is no family present to discuss this with, therefore it is being done emergently based on my recommendation.
--- NOTE | 2017-03-24 07:37 | OP ---
DATE OF OPERATION: 03/23/2017 PREOPERATIVE DIAGNOSIS: Perforated peptic ulcer. POSTOPERATIVE DIAGNOSES: Perforated peptic ulcer with a 1 cm pyloric channel ulcer and extensive pur ulence and peritonitis intra-abdominal. OPERATION PERFORMED: Exploratory laparotomy, repair of perforated pyloric channel ulcer with omental patch, extensive irrigation of abdominal contents. INDICATIONS: The patient is a 46-year-old white male with an extensive history of drug use. He arri karo to the hospital complaining of abdominal pain, but began acting strangely as though he was under the influence of illegal drugs. It became increasingly difficult to examine to determine what to do based upon his presentation. Upper GI endoscopy showed a deep penetrating duodenal ulcer and he is t aken to the operating room at this time for laparotomy with a suspicion of ulcer perforation. DESCRIPTION OF OPERATION: Informed consent was not able to be obtained, as the patient was under gen eral anesthesia and there was no other family present. He was transferred from the endoscopy suite t o the operating room. Abdomen was trimmed of hair, prepped with ChloraPrep, and draped in sterile fa shion. A midline upper abdominal incision was created and dissection was carried through skin and villanueva bcutaneous tissue into the abdominal cavity through the midline. Immediately upon entering, a large amount of free air escaped. There was a large volume of creamy material present diffusely throughout the abdominal cavity. There was fibrinous debris that had set up across the anterior aspect of the stomach. The ulcer was immediately apparent and the pyloric channel was about a cm in diameter. The re was minimal surrounding induration. I debrided the fibrinous debris and gently debrided the ulcer . I ensured that there was patent lumen underlying the ulcer. It was then closed with a series of i nterrupted sutures of 2-0 silk transversely. Four sutures were placed. I then created an omental fl ap off of the proximal aspect of the transverse colon. This was laid across the repair and sutured i n place with 5 interrupted sutures of 3-0 silk. The abdominal cavity was then extensively irrigated with 4 liters of warm saline until all return was essentially clear. The fascia was then closed with running suture of loop #1 PDS. Skin edges were approximated loosely with skin marcela and Telfa gauze and Theodora were placed between the marcela and dry gauze dressing pl aced externally. There were no complications. The patient tolerated the procedure well and was take n to the recovery room in stable condition.
--- NOTE | 2017-03-24 08:01 | RAD ---
EXAM: ONE VIEW CHEST HISTORY: Respiratory distress. Ventilated patient. COMPARISON: 03/23/2017 FINDINGS: Redemonstration of endotracheal and nasogastric tubes. Stable configuration of the cardiac silhouett e. Pulmonary vessels are slightly prominent. Patchy interstitial opacities have developed. No cons olidation or mass. No pleural effusion or pneumothorax. IMPRESSION: 1. Mildly prominent pulmonary vessels. 2. Patchy interstitial opacities. Correlate for volume overload. POS: [facility]
[2017-03-24] MEDS: Vancomycin HCl 1 GM in Premix Bag 1 BAG IVPB SCH ×2 (08:19→20:20)
[2017-03-24] MEDS: Enoxaparin Sodium 40 MG/0.4 ML SYRINGE SC SCH (08:19)
[2017-03-24] MEDS: Pantoprazole 40 MG VIAL IVP SCH ×2 (08:20→20:20)
--- NOTE | 2017-03-24 08:35 | PDOC.FM ---
- Subjective Subjective: Yesterday, patient went down for EGD, duodenal ulcer was found. He was sent directly to OR where it was repaired and white material was found. Overnight he was combative so decision was made to prolong his intubataion. - Objective Vital Signs & Weight: Vital Signs (12 hours) Temp Pulse Resp BP Pulse Ox 03/24/17 07:48 99.3 F 104 H 16 100 03/24/17 07:00 99.3 F 03/24/17 06:34 105 H 96/68 03/24/17 06:00 14 03/24/17 04:00 98.5 F 14 03/24/17 03:10 106 H 03/24/17 02:00 16 03/24/17 01:07 108 H 03/24/17 00:00 98.9 F 17 03/23/17 22:00 21 H 03/23/17 21:44 110 H Weight Admit Weight 65.7 kg Most Recent Monitor Data Heart Rate from ECG 102 NIBP 93/61 NIBP BP-Mean 69 Respiration from ECG 14 SpO2 100 I&O: 03/23/17 03/24/17 03/25/17 06:59 06:59 06:59 Intake Total 1197 Output Total 382 140 Balance 815 -140 Result Diagrams: 03/24/17 03:26 03/24/17 03:26 <Corbin Samson M - Last Filed: 03/24/17 11:28> - Objective Vital Signs & Weight: Vital Signs (12 hours) Temp Pulse Resp BP Pulse Ox 03/24/17 10:54 103 H 90/58 L 03/24/17 10:00 19 03/24/17 08:00 95/65 03/24/17 07:48 99.3 F 104 H 16 100 03/24/17 07:00 99.3 F 03/24/17 06:34 105 H 96/68 03/24/17 06:00 14 03/24/17 04:00 98.5 F 14 03/24/17 03:10 106 H 03/24/17 02:00 16 03/24/17 01:07 108 H Weight Admit Weight 65.7 kg Weight 65.7 kg Most Recent Monitor Data Heart Rate from ECG 104 NIBP 89/55 NIBP BP-Mean 65 Respiration from ECG 12 SpO2 99 I&O: 03/23/17 03/24/17 03/25/17 06:59 06:59 06:59 Intake Total 1197 Output Total 382 365 Balance 815 -365 Result Diagrams: 03/24/17 03:26 03/24/17 03:26 <KamilahHan R - Last Filed: 03/24/17 12:45> Phys Exam - Physical Examination Constitutional: NAD HEENT: moist MMs Eyes where 3 mm, sluggishly reactive to light. Neck: no nodes Respiratory: no wheezing, no rales, no rhonchi, clear to auscultation bilateral Cardiovascular: RRR, no significant murmur Gastrointestinal: soft, no distention, positive bowel sounds Clean appearing surgical scar in midline Musculoskeletal: no edema Intubated Deviation from normal: Surgical scar <MlaiCorbin M - Last Filed: 03/24/17 11:28> Dx/Plan (1) Perforated duodenal ulcer Code(s): K26.5 - CHRONIC OR UNSPECIFIED DUODENAL ULCER WITH PERFORATION Status : Acute Plan: 03/24: Patient had surgery yesterday, duodenal ulcer was repaired and patient tolerated procedure well, was sent back to ICU. Will continue to follow up with surgery recs. This likely explains the leukocytosis and free fluid. (2) Cholelithiasis Code(s): K80.20 - CALCULUS OF GALLBLADDER W/O CHOLECYSTITIS W/O OBSTRUCTION Status: Acute Plan: 03/24: At this time, without evidence of cholecystitis, this is less likely cause for patient's presentation. If patient returns with abd symptoms, will consider this again. (3) Polysubstance abuse Code(s): F19.10 - OTHER PSYCHOACTIVE SUBSTANCE ABUSE, UNCOMPLICATED Status: Acute Plan: 03/24: Patient was combative after returning from ER, so will need sedation, possible extubation tomorrow. Please see UDS for illicit drug found. Will advise cessation at discharge. (4) Tachycardia Code(s): R00.0 - TACHYCARDIA, UNSPECIFIED Status: Acute Plan: 03/24: Has persistent mild tachycardia. May be post surgical tachycardia, recently repaired perforation, drug use or infectious cause. Currently being covered with abx. Will monitor BP for hypotension. Will continue to monitor. (5) Macrocytic anemia Code(s): D53.9 - NUTRITIONAL ANEMIA, UNSPECIFIED Status: Acute Plan: 03/24: Neg alcohol screen, but with polysubstance abuse, alcohol abuse is not out of the question.l Currently treated with banana bag. B12 and folate normal. COnsider methylmalonic acid test. (6) PATRICIA (acute kidney injury) Code(s): N17.9 - ACUTE KIDNEY FAILURE, UNSPECIFIED Status: Acute Plan: 03/24: Continue fluid hydration. Monitor kidney function with daily BMP. (7) Hyperkalemia Code(s): E87.5 - HYPERKALEMIA Status: Acute Plan: 03/24: Will continue to monitor, potassium is mildly elevated, may possible be due to PATRICIA. Will continue with fluid hydration, recheck potassium tomorrow. (8) Hyponatremia Code(s): E87.1 - HYPO-OSMOLALITY AND HYPONATREMIA Status: Acute Plan: 03/24: Will continue to monitor. Patient will continue to get IV saline. Possible hyponatremia due to gastric fluid loss. Will continue to monitor Na with CMP. <Corbin Samson - Last Filed: 03/24/17 11:28> Attending Addendum - Attending Addendum I personally evaluated the patient and discussed the management with Dr. Samson. I agree with the History, Examination, Assessment and Plan documented above with any addition or exceptions noted below. Patient is s/p ex-lap with repair of perforated duodenal ulcer. Critical but stable. Continues to be sedated and on vent support to prevent agitation. WBC elevated today, likely 2/2 inflammatory changes as patient has purulent material in his abdomen. Continues afebrile and on antibiotic therapy. Urine output not adequate, will increase fluid rate as patient will be NPO with ulcer site heals. He has evidence of some kidney injury that will need to be trended. He is mildly hyperkalemic that we will need to monitor. Await further recs from critical care and surgery. <Han Triana - Last Filed: 03/24/17 12:45>
[2017-03-24] MEDS: Multivitamins, Adult 10 ML, Folic Acid 1 MG, Thiamine HCl 100 MG in Dextrose 5 %-0.45 %... IV SCH ×8 (10:10→17:40)
[2017-03-24] MEDS ORDERED: Sodium Chloride 0.9% 500 ML IV SCH (11:45)
[2017-03-24] MEDS ORDERED: Sodium Chloride 0.9% 1,000 ML IV SCH (12:15)
--- NOTE | 2017-03-24 12:27 | CON ---
DATE OF CONSULTATION: 03/24/2017 Marcus George is a patient who is known to this hospital. He is a known street drug user with a drug screen yesterday showing opiates, amphetamine, methamphetamine, and cannabinoids. He presented to the emergency department with abdominal discomfort. The ER physician treating him sa id that he had to run a code and when he came back, the patient had gone outside and was out of the r oom in the parking lot. He came back in and was hallucinating and agitated and oriented x1. Apparently, he was not answering questions appropriately. Reviewing old records, he is in the hospital at the beginning of March with complaints of drainage out of an injury in his right hand. He said he was an insect bite. It is unclear whether or not he was shooting drugs through this hand. In any event, on 03/11/2017, he had an operative procedure by the hand surgeon, Dr. Mayfield. He had incision and drainage of an abscess, debridement of the wound. When he was in the hospital, at that time, he would add methamphetamines, amphetamines, benzodiazepin es, cannabinoids, and opiates on his drug screen. He went to the OR last night and was found to have perforated duodenal ulcer. He was transferred [facility] to the ICU and intubated because of his agitation and confusion, preoperatively felt to be secondar y to drug use. I was consulted. PAST MEDICAL HISTORY: Remarkable for an appendectomy. SOCIAL HISTORY: He is a one pack a day smoker according to old records, he drinks occasionally, uses street drugs. Based on the drug screen, I am unable to take a history from him. FAMILY HISTORY: Obtained from old records. He was admitted at the beginning of March. He report ed negative family history for coronary artery disease. Apparently, his primary care physician is in [place]. REVIEW OF SYSTEMS: Not obtainable since he is intubated. PHYSICAL EXAMINATION: VITAL SIGNS: Heart rate 73, blood pressure 90/58, respiratory rate is 12, oximetry is 99%. HEENT: Pupils react. Sclerae is anicteric. NECK: Supple without lymphadenopathy. LUNGS: Clear anteriorly. HEART: Regular rhythm. S1 and S2 are normal. ABDOMEN: Soft. EXTREMITIES: Without asymmetry. LABORATORY DATA AND IMAGING DATA: Sodium 133, potassium 5.9, chloride 104, bicarbonate 22, BUN 32, c reatinine 1.65. White count 33,000, hemoglobin 11, platelets 325,000. There is no x-ray done. I will order one and review this. IMPRESSION: 1. Respiratory failure after laparotomy for perforated duodenal ulcer. 2. Acute kidney injury most likely secondary to intravascular volume depletion. 3. Multiple street drug user with use in the ER prior to his operation based on what was reported cl inically. 4. Recent incision and drainage of hand abscess. Plan to keep him sedated and ventilated. No feeds for today. Hopefully, tomorrow morning we will give him sedation holiday and if he is cooperative, wean and extu rudy him. I will give him Haldol around the clock until then. Critical care time 40 minutes plus time spent reviewing the chart and discussing his care with the he alth care providers including the nursing staff and the general surgeons.
[2017-03-24] MEDS: Haloperidol Lactate 5 MG/ML VIAL IM SCH ×4 (12:40→23:49)
--- NOTE | 2017-03-24 14:17 | PRG ---
DATE OF SERVICE: 03/24/2017 SUBJECTIVE: Mr. George is postoperative day #1 from exploratory laparotomy for perforated pyloric ch ai ulcer. He underwent uneventful repair last night. Because of his history of recent drug use w ith agitation and hyperdynamic activity, he was left on the ventilator postoperatively. He remains o n the sedation protocol. He is currently unarousable with his level of sedation. OBJECTIVE: VITAL SIGNS: On examination, he is afebrile with a maximum temperature of 99.7, pulse is 99, blood p ressure is 90/50. He had 382 mL of urine output yesterday. GENERAL: On examination today, he is sedated on the ventilator. LUNGS: Clear to auscultation. HEART: Regular rate and rhythm. ABDOMEN: Soft and appears to be nontender. There is no obvious distention. There is no bowel sound s. Dressing is intact over her upper midline incision. LABORATORY STUDIES: White blood cell count is up from 24 yesterday to 33.7 today. Hemoglobin is 11. 2, platelet count is 325 and has 24% bands. Chemistry reveals that his potassium went up from 4.3-5. 9, creatinine 1 from 1.2-1.6. ASSESSMENT: The patient is stable following laparotomy for perforated ulcer. He was maintained on t he ventilator per Pulmonary Medicine. For now, we will continue nasogastric suctioning. We would an ticipate initiating a liquid diet after he is extubated. Of note, I did speak with his mother who lives in [place] who confirms his long history of relapsin g issues with IV drug abuse.
[2017-03-24] MEDS: Fluconazole In NaCl,Iso-Osm 200 MG in Premix Bag 1 BAG IVPB SCH ×2 (20:17)
[2017-03-25] MEDS: Haloperidol Lactate 5 MG/ML VIAL IM SCH ×4 (03:58→16:01)
[2017-03-25] MEDS: Propofol 1,000 MG/100 ML VIAL IV PRN (05:14)
[2017-03-25] MEDS: cefOXitin Sodium 1 GM, Syringe 0.5 ML in Sterile Water 10 ML SLOW IVP SCH ×4 (05:14→23:40)
[2017-03-25] MEDS: Sodium Chloride 0.9% 1,000 ML IV SCH ×4 (05:17→23:40)
[2017-03-25 05:18] LABS: Anion Gap 12 mmol/L (10-20); BUN (Urea Nitrogen) 15 mg/dL (8.9-20.6); Calc. Creatinine Clearance 91 mL/min (70-130); Calcium 8.6 mg/dL (7.8-10.44); Carbon Dioxide 23 mmol/L (22-29); Chloride 106 mmol/L (98-107); Estimated GFR-MDRD 88
[2017-03-25 05:19] LABS: Band 3 % (5-11); Hematocrit 28.8 % (42.0-52.0); Mean Platelet Volume 9.5 fL (7.4-10.4); Neutrophil 88 % (42-75); Red Blood Cell (RBC) Count 2.88 mill/uL (4.70-6.10); White Blood Cell (WBC) Count 18.9 thou/uL (4.8-10.8)
--- NOTE | 2017-03-25 07:48 | PDOC.FM ---
- Subjective Subjective: Patient continues to be intubated. May possibly be extubated today after a sedation holiday. Otherwise there was no concerning event overnight. - Objective MAR Reviewed: Yes Vital Signs & Weight: Vital Signs (12 hours) Temp Pulse Resp Pulse Ox 03/25/17 07:00 100.6 F H 03/25/17 06:00 14 03/25/17 04:00 19 03/25/17 03:00 99.7 F H 03/25/17 02:38 103 H 14 98 03/25/17 02:00 16 03/25/17 00:00 16 03/24/17 23:00 98.9 F 03/24/17 22:00 16 03/24/17 21:54 107 H 20 97 03/24/17 20:00 19 Weight Admit Weight 65.7 kg Weight 65.7 kg Most Recent Monitor Data Heart Rate from ECG 105 NIBP 96/61 NIBP BP-Mean 67 Respiration from ECG 13 SpO2 94 I&O: 03/24/17 03/25/17 03/26/17 06:59 06:59 06:59 Intake Total 1197 4384.8 Output Total 382 2175 90 Balance 815 2209.8 -90 Result Diagrams: 03/25/17 04:19 03/25/17 04:19 <MailCorbin M - Last Filed: 03/25/17 09:23> - Objective Vital Signs & Weight: Vital Signs (12 hours) Temp Pulse Resp BP Pulse Ox 03/25/17 10:18 113 H 96/56 L 03/25/17 10:17 110 H 14 96 03/25/17 10:00 12 03/25/17 08:00 111 H 107/66 03/25/17 07:58 115 H 16 95 03/25/17 07:28 100.6 F H 103 H 14 93 L 03/25/17 07:00 100.6 F H 03/25/17 06:00 14 03/25/17 04:00 19 03/25/17 03:00 99.7 F H 03/25/17 02:38 103 H 14 98 03/25/17 02:00 16 03/25/17 00:00 16 Weight Admit Weight 65.7 kg Weight 65.7 kg Most Recent Monitor Data Heart Rate from ECG 110 NIBP 96/56 NIBP BP-Mean 63 Respiration from ECG 12 SpO2 97 I&O: 03/24/17 03/25/17 03/26/17 06:59 06:59 06:59 Intake Total 1197 4384.8 648 Output Total 382 2175 215 Balance 815 2209.8 433 Result Diagrams: 03/25/17 04:19 03/25/17 04:19 <Luis Daniel Knapp - Last Filed: 03/25/17 11:43> Phys Exam - Physical Examination Arousable and can be calmed down HEENT: moist MMs Neck: no nodes Respiratory: no wheezing, no rales, no rhonchi, clear to auscultation bilateral Currently on cpap Cardiovascular: RRR, no significant murmur, no rub Gastrointestinal: soft, non-tender, no distention, positive bowel sounds Midline surgical incision Musculoskeletal: no edema Able to move all 4 limb, can be aroused, open eye to stimulation Lymphatic: no nodes Skin: no rash <Corbin Samson M - Last Filed: 03/25/17 09:23> Dx/Plan (1) Perforated duodenal ulcer Code(s): K26.5 - CHRONIC OR UNSPECIFIED DUODENAL ULCER WITH PERFORATION Status : Acute Plan: 03/24: Patient had surgery yesterday, duodenal ulcer was repaired and patient tolerated procedure well, was sent back to ICU. Will continue to follow up with surgery recs. This likely explains the leukocytosis and free fluid. 03/25: Patient WBC has improved as had his tachycardia. Will continue to monitor his vitals, keep NPO and intubated until patient has a sedation holiday. Patient does have a mild fever at this time, will monitor this. May be post surgical changes, but leukocytosis is improving. Will continue monitoring, blood culture if fever continues. (2) Cholelithiasis Code(s): K80.20 - CALCULUS OF GALLBLADDER W/O CHOLECYSTITIS W/O OBSTRUCTION Status: Acute Plan: 03/24: At this time, without evidence of cholecystitis, this is less likely cause for patient's presentation. If patient returns with abd symptoms, will consider this again. 03/25: No change in plans at this t sharon. (3) Polysubstance abuse Code(s): F19.10 - OTHER PSYCHOACTIVE SUBSTANCE ABUSE, UNCOMPLICATED Status: Acute Plan: 03/24: Patient was combative after returning from ER, so will need sedation, possible extubation tomorrow. Please see UDS for illicit drug found. Will advise cessation at discharge. 03/25: Will continue with current plan. Will monitor for withdrawal symptoms. (4) Tachycardia Code(s): R00.0 - TACHYCARDIA, UNSPECIFIED Status: Acute Plan: 03/24: Has persistent mild tachycardia. May be post surgical tachycardia, recently repaired perforation, drug use or infectious cause. Currently being covered with abx. Will monitor BP for hypotension. Will continue to monitor. 03/25: Tachycardia resolved at this time. Continue current fluid restriction. (5) Macrocytic anemia Code(s): D53.9 - NUTRITIONAL ANEMIA, UNSPECIFIED Status: Acute Plan: 03/24: Neg alcohol screen, but with polysubstance abuse, alcohol abuse is not out of the question.l Currently treated with banana bag. B12 and folate normal. COnsider methylmalonic acid test. 03/25: Patient received banana bag. Will continue to monitor. Discuss patient diet, possible alcohol use on discharge. (6) PATRICIA (acute kidney injury) Code(s): N17.9 - ACUTE KIDNEY FAILURE, UNSPECIFIED Status: Acute Plan: 03/24: Continue fluid hydration. Monitor kidney function with daily BMP. 03/25: Improved PATRICIA versus yesterday with improvement in electrolytes. Fluid output is now adequate. (7) Hyperkalemia Code(s): E87.5 - HYPERKALEMIA Status: Acute Plan: 03/24: Will continue to monitor, potassium is mildly elevated, may possible be due to PATRICIA. Will continue with fluid hydration, recheck potassium tomorrow. 03/25: Potassium has resolved, will continue to monitor with daily labs. (8) Hyponatremia Code(s): E87.1 - HYPO-OSMOLALITY AND HYPONATREMIA Status: Acute Plan: 03/24: Will continue to monitor. Patient will continue to get IV saline. Possible hyponatremia due to gastric fluid loss. Will continue to monitor Na with CMP. 03/25: Resolved hyponatremia with Na at 136. Will continue to monitor at this time with daily lab. (9) Bibiana albicans infection Code(s): B37.9 - CANDIDIASIS, UNSPECIFIED Status: Acute Plan: 03/25/17: Culture came back with bibiana. Patient is now on fluconazole. Serology from last week was pertinent only for apparently cleared Hep C. HIV, RPR, Hep B neg. (10) Cellulitis of right hand Code(s): L03.113 - CELLULITIS OF RIGHT UPPER LIMB Status: Acute Plan: 03/25: Patient had infection of his right hand from last week visit. He continues to be treated with vancomycin which will cover the cellulitis. <Corbin Samson - Last Filed: 03/25/17 09:23> Attending Addendum - Attending Addendum I personally evaluated the patient and discussed the management with Dr. Samson. I agree with the History, Examination, Assessment and Plan documented above with any addition or exceptions noted below. Complex constellation of medical problems. he has improved faster than expected. we appreciate Dr Henning's care. Possible extubation soon. <Luis Daniel Knapp - Last Filed: 03/25/17 11:43>
--- NOTE | 2017-03-25 08:16 | RAD ---
CHEST ONE VIEW: History: Ventilated patient. Comparison: 03-24-17 FINDINGS: Patient has an endotracheal tube tip craniad through the lexa 5 cm. Layering effusions. No pneumoth orax. IMPRESSION: 1. Layering bilateral pleural effusions. 2. Endotracheal tube tip and enteric tip are similar. POS: [facility]
[2017-03-25 08:20] LABS: Vancomycin, Trough 10.7 ug/mL
[2017-03-25] MEDS: Enoxaparin Sodium 40 MG/0.4 ML SYRINGE SC SCH (08:39)
[2017-03-25] MEDS: Vancomycin HCl 1 GM in Premix Bag 1 BAG IVPB SCH (08:39)
[2017-03-25] MEDS: Pantoprazole 40 MG VIAL IVP SCH ×2 (08:39→19:37)
[2017-03-25] MEDS ORDERED: Multivitamins, Adult 10 ML, Thiamine HCl 100 MG, Folic Acid 1 MG in Dextrose 5 %-0.45 %... IV SCH ×4 (09:00)
[2017-03-25] MEDS ORDERED: FLU VACC QS2017-18 36 mo. & older 0.5 ML SYRINGE IM ONE (09:00)
--- NOTE | 2017-03-25 14:05 | PRG ---
DATE OF SERVICE: 03/25/2017 SUBJECTIVE: Mr. George is postoperative day #2 following a laparotomy and repair of a perforated pyl oric channel ulcer. He has been relatively stable in the Intensive Care Unit. He was extubated by Ursula Irvin within the last hour. He still seems to be somewhat foggy but communicates. He knows his n tim, but does not know where he is. PHYSICAL EXAMINATION: VITAL SIGNS: He is afebrile with a maximum temperature of 101.3, pulse is 102-116, blood pressure 10 7/62. GENERAL: He is resting in bed in no acute distress. He is alert, although oriented only to person. LUNGS: Clear to auscultation anteriorly. CARDIAC: Regular rate and rhythm. ABDOMEN: Surprisingly soft with minimal tenderness. I hear no bowel sounds. Dressing is still inta ct over his midline incision. LABORATORY STUDIES: CBC reveals his white blood cell count is down from 33 yesterday to 18.9 today. Hemoglobin is also down to 9.4. Platelet count is 236. Chemistry profile reveals normal electrolyt es. ASSESSMENT: The patient is doing well following repair of perforated pyloric channel ulcer. He calvin ins in the Intensive Care Unit largely because of his illegal drugs he was taken before surgery in hi s activity subsequently. He will be observed in the ICU today with hopeful transfer to the floor [facility]. He will be started on ice chips now. He appears to still have an ileus and therefore I would recommend starting his regular diet. We will also remove his Soto catheter. Continue IV antibioti cs.
--- NOTE | 2017-03-25 17:15 | PRG ---
DATE OF SERVICE: 03/25/2017 SUBJECTIVE: Ariel has sedation held all morning. He has been on pressure support of 10, 5 of PEEP and did well all morning. He had no retained secretions. PHYSICAL EXAMINATION: VITAL SIGNS: He is afebrile, blood pressure 112/70, heart rate has been in the one teens. ABDOMEN: Soft and tender as expected after surgery. LABORATORY DATA: White count 18.9, hemoglobin 9.4, platelets 236. White count yesterday was 33.7. Sodium 136, potassium 4.6, chloride 106, bicarb 23, BUN 15, creatinine 0.9. No blood gas was done to day. Chest radiograph reveals lung cali were clear. Bilateral pleural effusions as expected after laparotomy were seen. Pathology showed no helicobacter from gastric biopsy. IMPRESSION: 1. Status post laparotomy for perforated ulcer. 2. Street drug use, believed to have occurred while the patient was in the emergency department. I felt he was stable for extubation. He passed a leak test and subsequently has been extubated and i s doing well. He will continue IV antimicrobial therapy per Dr. Carrasco. Sedation protocol will be discontinued. Haldol will be changed to p.r.n. Critical care time 35 minutes.
[2017-03-25] MEDS: Morphine 4 MG/ML VIAL SLOW IVP PRN ×2 (18:12→21:40)
[2017-03-25] MEDS: Fluconazole In NaCl,Iso-Osm 200 MG in Premix Bag 1 BAG IVPB SCH ×2 (19:37)
[2017-03-25] MEDS ORDERED: Vancomycin HCl 1.25 GM in Sodium Chloride 0.9% 250 ML 250 ML IVPB SCH (21:00)
[2017-03-25] MEDS: Haloperidol Lactate 5 MG/ML VIAL IM PRN (23:01)
[2017-03-26] MEDS: Morphine 4 MG/ML VIAL SLOW IVP PRN ×6 (01:46→23:08)
[2017-03-26] MEDS: Haloperidol Lactate 5 MG/ML VIAL IM PRN (03:01)
[2017-03-26] MEDS: cefOXitin Sodium 1 GM, Syringe 0.5 ML in Sterile Water 10 ML SLOW IVP SCH ×3 (05:08→18:03)
[2017-03-26 05:13] LABS: Anion Gap 10 mmol/L (10-20); BUN (Urea Nitrogen) 7 mg/dL (8.9-20.6); Calc. Creatinine Clearance 105 mL/min (70-130); Carbon Dioxide 27 mmol/L (22-29); Chloride 103 mmol/L (98-107); Estimated GFR-MDRD Greater than 90
[2017-03-26 05:29] LABS: Band 7 % (5-11); Hematocrit 28.4 % (42.0-52.0); Neutrophil 79 % (42-75); Red Blood Cell (RBC) Count 2.82 mill/uL (4.70-6.10); White Blood Cell (WBC) Count 20.2 thou/uL (4.8-10.8)
[2017-03-26] MEDS: Sodium Chloride 0.9% 1,000 ML IV SCH ×2 (08:32→15:58)
[2017-03-26] MEDS: Pantoprazole 40 MG VIAL IVP SCH ×2 (08:34→23:08)
[2017-03-26] MEDS: Enoxaparin Sodium 40 MG/0.4 ML SYRINGE SC SCH (08:34)
[2017-03-26] MEDS: Vancomycin HCl 1.25 GM in Sodium Chloride 0.9% 250 ML 250 ML IVPB SCH ×2 (08:41→23:19)
[2017-03-26] MEDS ORDERED: Multivitamins, Adult 10 ML, Thiamine HCl 100 MG, Folic Acid 1 MG in Dextrose 5 %-0.45 %... IV SCH ×4 (09:00)
--- NOTE | 2017-03-26 09:13 | PDOC.FM ---
- Subjective Subjective: Patient extubated yesterday. He is now awake, on room air, oriented, not passing BM or gas at this time. - Objective MAR Reviewed: Yes Vital Signs & Weight: Vital Signs (12 hours) Temp Pulse Resp Pulse Ox 03/26/17 08:12 91 L 03/26/17 08:11 111 H 18 03/26/17 07:21 99.2 F 100 15 93 L 03/26/17 07:00 99.2 F 03/26/17 03:00 99.0 F 03/26/17 02:30 105 H 16 90 L 03/25/17 23:00 99.7 F H 03/25/17 22:18 100 16 97 Weight Admit Weight 65.7 kg Weight 65.7 kg Most Recent Monitor Data Heart Rate from ECG 100 NIBP 112/67 NIBP BP-Mean 80 Respiration from ECG 15 SpO2 91 I&O: 03/25/17 03/26/17 03/27/17 06:59 06:59 06:59 Intake Total 4384.8 3079.8 0 Output Total 2175 2465 300 Balance 2209.8 614.8 -300 Result Diagrams: 03/26/17 03:42 03/26/17 03:42 <MaliCorbin M - Last Filed: 03/26/17 09:10> - Objective Vital Signs & Weight: Vital Signs (12 hours) Temp Pulse Resp Pulse Ox 03/26/17 15:49 98.6 F 03/26/17 14:56 104 H 20 03/26/17 11:56 98.8 F 03/26/17 10:46 106 H 20 03/26/17 08:12 91 L 03/26/17 08:11 111 H 18 03/26/17 07:21 99.2 F 100 15 93 L 03/26/17 07:00 99.2 F Weight Admit Weight 65.7 kg Weight 65.7 kg Most Recent Monitor Data Heart Rate from ECG 97 NIBP 134/83 NIBP BP-Mean 78 Respiration from ECG 18 SpO2 96 I&O: 03/25/17 03/26/17 03/27/17 06:59 06:59 06:59 Intake Total 4384.8 3079.8 2340 Output Total 2175 2465 750 Balance 2209.8 614.8 1590 Result Diagrams: 03/26/17 03:42 12/21/17 03:42 <Mellisa Graham - Last Filed: 03/26/17 18:27> Phys Exam - Physical Examination Constitutional: NAD HEENT: moist MMs Neck: no nodes, supple Respiratory: no wheezing, no rales, no rhonchi, clear to auscultation bilateral Cardiovascular: RRR, no significant murmur, no rub Gastrointestinal: soft, non-tender Hypoactive bowel, midline surgical incision Musculoskeletal: no edema Neurological: non-focal, moves all 4 limbs Lymphatic: no nodes Psychiatric: normal affect Skin: no rash <MaliCorbin M - Last Filed: 03/26/17 09:10> Dx/Plan (1) Perforated duodenal ulcer Code(s): K26.5 - CHRONIC OR UNSPECIFIED DUODENAL ULCER WITH PERFORATION Status : Acute Plan: 03/24: Patient had surgery yesterday, duodenal ulcer was repaired and patient tolerated procedure well, was sent back to ICU. Will continue to follow up with surgery recs. This likely explains the leukocytosis and free fluid. 03/25: Patient WBC has improved as had his tachycardia. Will continue to monitor his vitals, keep NPO and intubated until patient has a sedation holiday. Patient does have a mild fever at this time, will monitor this. May be post surgical changes, but leukocytosis is improving. Will continue monitoring, blood culture if fever continues. 03/26: Patient WBC rebound mildly from 18 to 20. However, he has had no fever. Peritoneal fluid shows bibiana albican. No bacterial growth or bacteria on gram stain. Blood culture still pending. Continue to treat with cefoxitin and vancomycin. Patient is to be NPO at this time, may be transferred to floor based on surg recs. (2) Tachycardia Code(s): R00.0 - TACHYCARDIA, UNSPECIFIED Status: Acute Plan: 03/24: Has persistent mild tachycardia. May be post surgical tachycardia, recently repaired perforation, drug use or infectious cause. Currently being covered with abx. Will monitor BP for hypotension. Will continue to monitor. 03/25: Tachycardia resolved at this time. Continue current fluid restriction. 03/26: Continues to be mildly tachycardic. Patient has good urine output and good BP. May still be inflammatory response or surgery, as evidenced with with elevated but improving leukocytosis. Will get culture if patient becomes febrile. (3) Macrocytic anemia Code(s): D53.9 - NUTRITIONAL ANEMIA, UNSPECIFIED Status: Acute Plan: 03/24: Neg alcohol screen, but with polysubstance abuse, alcohol abuse is not out of the question.l Currently treated with banana bag. B12 and folate normal. COnsider methylmalonic acid test. 03/25: Patient received banana bag. Will continue to monitor. Discuss patient diet, possible alcohol use on discharge. 03/26: Receiving banana bag, likely switch to PO thiamine, folate, magnesium and multivitamin. (4) PATRICIA (acute kidney injury) Code(s): N17.9 - ACUTE KIDNEY FAILURE, UNSPECIFIED Status: Acute Plan: 03/24: Continue fluid hydration. Monitor kidney function with daily BMP. 03/25: Improved PATRICIA versus yesterday with improvement in electrolytes. Fluid output is now adequate. 03/26: Improved PATRICIA, fluid output adequate. Tara has been DCed. (5) Hyperkalemia Code(s): E87.5 - HYPERKALEMIA Status: Acute Plan: 03/24: Will continue to monitor, potassium is mildly elevated, may possible be due to PATRICIA. Will continue with fluid hydration, recheck potassium tomorrow. 03/25: Potassium has resolved, will continue to monitor with daily labs. 03/26: Hyperkalemia resolved at this time. (6) Hyponatremia Code(s): E87.1 - HYPO-OSMOLALITY AND HYPONATREMIA Status: Acute Plan: 03/24: Will continue to monitor. Patient will continue to get IV saline. Possible hyponatremia due to gastric fluid loss. Will continue to monitor Na with CMP. 03/25: Resolved hyponatremia with Na at 136. Will continue to monitor at this time with daily lab. 03/26: Resolved hyponatremia at this time. (7) Bibiana albicans infection Code(s): B37.9 - CANDIDIASIS, UNSPECIFIED Status: Acute Plan: 03/25/17: Culture came back with bibiana. Patient is now on fluconazole. Serology from last week was pertinent only for apparently cleared Hep C. HIV, RPR, Hep B neg. 03/26: Continue with fluconazole. (8) Cellulitis of right hand Code(s): L03.113 - CELLULITIS OF RIGHT UPPER LIMB Status: Acute Plan: 03/25: Patient had infection of his right hand from last week visit. He continues to be treated with vancomycin which will cover the cellulitis. 03/26: Continue vancomycin, changing to 1.25 mg BID as yesterday trough was suptherapeutic. Will get another trough in 2 days. (9) Cholelithiasis Code(s): K80.20 - CALCULUS OF GALLBLADDER W/O CHOLECYSTITIS W/O OBSTRUCTION Status: Acute Plan: 03/24: At this time, without evidence of cholecystitis, this is less likely cause for patient's presentation. If patient returns with abd symptoms, will consider this again. 03/25: No change in plans at this t sharon. (10) Polysubstance abuse Code(s): F19.10 - OTHER PSYCHOACTIVE SUBSTANCE ABUSE, UNCOMPLICATED Status: Acute Plan: 03/24: Patient was combative after returning from ER, so will need sedation, possible extubation tomorrow. Please see UDS for illicit drug found. Will advise cessation at discharge. 03/25: Will continue with current plan. Will monitor for withdrawal symptoms. 03/26: Continued with ASE protocol, but at this time, patient has had no agitation and he denies taking any alcohol in the past week. Will change his banana bag to PO medication if it needs to continue. <Corbin Samson - Last Filed: 03/26/17 09:10> Attending Addendum - Attending Addendum I personally evaluated the patient and discussed the management with Dr. Samson at 930 am. I agree with the History, Examination, Assessment and Plan documented above with any addition or exceptions noted below. Duodenal perforation s/p laparotomy and repair- pod#2. Continue abx per surg recs. Advance diet per surg. Tachycardia- sinus. most likely inflammatory. Continue to observe. polysubstance abuse- continued counseling. <Mellisa Graham Darya - Last Filed: 03/26/17 18:27>
--- NOTE | 2017-03-26 09:24 | RAD ---
CHEST 1 VIEW: HISTORY: Ventilated patient. COMPARISON: Chest 1 view prior date. FINDINGS: There is redistribution of right-sided layering pleural fluid. Small left effusion. No pneumothorax . Passive atelectasis right lung base. IMPRESSION: Interval redistribution of right layering pleural fluid. POS: [facility]
--- NOTE | 2017-03-26 11:23 | PRG ---
DATE OF SERVICE: 03/26/2017 Mr. George has no complaints. PHYSICAL EXAMINATION: VITAL SIGNS: Heart rate 111, respiratory rate 18, oximetry is 91, blood pressure 99/72. LUNGS: Lungs are clear. HEART: Regular rhythm. ABDOMEN: He has only mild tenderness. EXTREMITIES: Without asymmetry. LABORATORY DATA: White count 20.2, hemoglobin 9.2, platelets 322. Sodium 136, potassium 3.9, chloride 103, bicarbonate 27, BUN 7, creatinine 0.8. IMPRESSION AND PLAN: 1. Status post surgical repair of a perforated ulcer. 2. Street drug use. We discussed this. I asked him if he remembered being in the emergency room, ness ibarra said, no I just remember going outside doing drugs. I told him no. I informed him his drug screen was possible from multiple drugs. From that point on, all he wanted to talk about was his drug scre en. He is medically stable to transfer out of the Critical Care Unit. I have explained to him that he his surgeon paid attention to him given his assumed use of drugs while he was actually in the [facility] department. At a large number of [facility]'s he would have been discharged against medical advice the [place] he walked out of the emergency department. He is progressing reasonably well. I suspect his resting tachycardia is related to his inflammatory response to his peritonitis. We will sign off when he transfers out of the Critical Care Unit.
--- NOTE | 2017-03-26 11:30 | PRG ---
DATE OF SERVICE: 03/26/2017 SUBJECTIVE: Mr. George is postoperative day #3 following a laparotomy and repair of perforated pylor ic channel ulcer. He remains in the intensive care unit. He was extubated yesterday. He was initia lly foggy and has been disoriented at times with some anxiety, but in generally has been stable witho ut significant volatility. He is now alert and oriented x3. He denies any drug use prior to his pre sentation to the emergency room (although he certainly appeared to demonstrate the effects of acute d rug intoxication.) PHYSICAL EXAMINATION: VITAL SIGNS: He is afebrile, temperature 99.2, T-max was yesterday when he had a fever of 101.3 yest erday at 11:00 in the morning. Pulse is 100-111 and regular, blood pressure is 100/72. LUNGS: Clear to auscultation. CARDIAC: Regular rate and rhythm. ABDOMEN: Has scant bowel sounds. Dressing is intact. He has minimal diffuse tenderness with no foc al areas of problems. LABORATORY STUDIES: White blood cell count is still elevated at 20.2, hemoglobin is stable at 9.2. Basic metabolic panel is essentially normal. ASSESSMENT: The patient appears to be stable following repair of perforated peptic ulcer. He may st ill have a bit of an ileus, but we will advance him to clear liquids today and see if he tolerates th ose acceptably. He can be transferred to the floor. We will continue his antibiotics and advance hi s diet as tolerated.
[2017-03-26] MEDS: Fluconazole In NaCl,Iso-Osm 200 MG in Premix Bag 1 BAG IVPB SCH ×2 (23:07)
[2017-03-27] MEDS: cefOXitin Sodium 1 GM, Syringe 0.5 ML in Sterile Water 10 ML SLOW IVP SCH ×4 (00:50→16:53)
[2017-03-27] MEDS: Morphine 4 MG/ML VIAL SLOW IVP PRN ×3 (04:15→12:30)
[2017-03-27] MEDS: Sodium Chloride 0.9% 1,000 ML IV SCH ×2 (04:46→17:36)
[2017-03-27 06:39] LABS: Anion Gap 12 mmol/L (10-20); BUN (Urea Nitrogen) 7 mg/dL (8.9-20.6); Calc. Creatinine Clearance 118 mL/min (70-130); Carbon Dioxide 25 mmol/L (22-29); Chloride 104 mmol/L (98-107); Estimated GFR-MDRD Greater than 90
[2017-03-27 06:42] LABS: Hematocrit 27.7 % (42.0-52.0); Mean Platelet Volume 8.5 fL (7.4-10.4); Red Blood Cell (RBC) Count 2.77 mill/uL (4.70-6.10); White Blood Cell (WBC) Count 11.2 thou/uL (4.8-10.8)
[2017-03-27 08:06] LABS: Band 7 % (5-11); Neutrophil 73 % (42-75); Polychromasia SLIGHT = 2-3 cells (100X) (0-2/hpf)
--- NOTE | 2017-03-27 08:10 | RAD ---
AP VIEW CHEST: 03/27/2017 HISTORY: Shortness of breath. Ventilator dependent patient. COMPARISON: 03/26/2017 FINDINGS: AP view chest demonstrates an area of opacity in the right lower lobe, compatible with an area of ate lectasis or pneumonia. This is unchanged since the previous comparison exam. No evidence of left-si ded pleural effusion seen. No evidence of pneumothorax seen. There may be some areas of atelectasis also seen in the left lung base. IMPRESSION: Area of opacity in the right lower lobe and subtle areas possibly in the left lower lobe. These may represent areas of atelectasis or pneumonia. The radiographic appearance of the chest is stable and unchanged since the previous day's exam. POS: [facility]
[2017-03-27] MEDS: Enoxaparin Sodium 40 MG/0.4 ML SYRINGE SC SCH (08:31)
[2017-03-27] MEDS: Pantoprazole 40 MG VIAL IVP SCH ×2 (08:35→20:46)
[2017-03-27] MEDS: Vancomycin HCl 1.25 GM in Sodium Chloride 0.9% 250 ML 250 ML IVPB SCH ×2 (08:38→20:46)
--- NOTE | 2017-03-27 08:48 | PDOC.FM ---
- Subjective Subjective: Patient has been out of bed, passing gas, urinated without cha and tolerating clear liquid diet. Besides his abdominalcramping he states he has no other issues. - Objective MAR Reviewed: Yes Vital Signs & Weight: Vital Signs (12 hours) Temp Pulse Resp BP BP Pulse Ox 03/27/17 08:24 98.4 F 94 16 154/88 H 95 03/27/17 07:19 104 H 16 93 L 03/27/17 05:12 99.1 F 77 16 144/87 H 95 03/27/17 04:00 144/87 H 03/27/17 00:07 99.0 F 87 16 137/63 93 L 03/27/17 00:00 137/63 03/26/17 21:16 98.3 F 98 16 147/89 H 92 L Weight Admit Weight 65.7 kg Weight 65.7 kg Most Recent Monitor Data Heart Rate from ECG 97 NIBP 134/83 NIBP BP-Mean 78 Respiration from ECG 18 SpO2 96 I&O: 03/26/17 03/27/17 03/28/17 06:59 06:59 06:59 Intake Total 3079.8 2340 Output Total 2465 750 Balance 614.8 1590 Result Diagrams: 03/27/17 05:44 03/27/17 05:44 <Corbin Samson M - Last Filed: 03/27/17 08:46> - Objective Vital Signs & Weight: Vital Signs (12 hours) Temp Pulse Resp BP BP Pulse Ox 03/27/17 17:01 98.2 F 73 16 150/83 H 96 03/27/17 13:51 98.2 F 77 20 143/84 H 96 03/27/17 08:24 98.4 F 94 16 154/88 H 95 03/27/17 08:00 98.4 F 94 16 154/88 H 95 03/27/17 07:19 104 H 16 93 L Weight Admit Weight 65.7 kg Weight 65.7 kg Most Recent Monitor Data Heart Rate from ECG 97 NIBP 134/83 NIBP BP-Mean 78 Respiration from ECG 18 SpO2 96 I&O: 03/26/17 03/27/17 03/28/17 06:59 06:59 06:59 Intake Total 3079.8 2340 Output Total 2465 750 Balance 614.8 1590 Result Diagrams: 03/27/17 05:44 03/27/17 05:44 <Mellisa Graham - Last Filed: 03/27/17 19:04> Phys Exam - Physical Examination Constitutional: NAD HEENT: moist MMs Neck: no nodes, no JVD, supple Respiratory: no rales, no rhonchi, clear to auscultation bilateral Mild wheezing Cardiovascular: RRR, no significant murmur, no rub Gastrointestinal: soft, no distention, positive bowel sounds Appropriately tender, midline incision Musculoskeletal: no edema Neurological: moves all 4 limbs Lymphatic: no nodes Psychiatric: normal affect Skin: no rash <Corbin Samson - Last Filed: 03/27/17 08:46> Dx/Plan (1) Perforated duodenal ulcer Code(s): K26.5 - CHRONIC OR UNSPECIFIED DUODENAL ULCER WITH PERFORATION Status : Acute Plan: Patient continues to improve, is regaining functions after surgery. Plan is to have patient with with PT/OT, use incentive spirometry and advance diet as tolerated. Continue current abx and will follow with surg recs. s/p day 3 duodenal ulcer repair. (2) Tachycardia Code(s): R00.0 - TACHYCARDIA, UNSPECIFIED Status: Acute Plan: Occasionally tachycardic, but it is less frequent then before. Patient is afebrile. WBC has dropped significantly to 11, so doubt infectious process. More likely post surgical inflammation. Will encourage pt/ot and incentive spirometry in the case of atelectasis. (3) Macrocytic anemia Code(s): D53.9 - NUTRITIONAL ANEMIA, UNSPECIFIED Status: Acute Plan: Stable issue (4) PATRICIA (acute kidney injury) Code(s): N17.9 - ACUTE KIDNEY FAILURE, UNSPECIFIED Status: Acute Plan: Resolved (5) Hyperkalemia Code(s): E87.5 - HYPERKALEMIA Status: Acute Plan: Resolved (6) Hyponatremia Code(s): E87.1 - HYPO-OSMOLALITY AND HYPONATREMIA Status: Acute Plan: Resolved (7) Mattie albicans infection Code(s): B37.9 - CANDIDIASIS, UNSPECIFIED Status: Acute Plan: Continue fluconazole. (8) Cellulitis of right hand Code(s): L03.113 - CELLULITIS OF RIGHT UPPER LIMB Status: Acute Plan: Continue with vancomycin. (9) Cholelithiasis Code(s): K80.20 - CALCULUS OF GALLBLADDER W/O CHOLECYSTITIS W/O OBSTRUCTION Status: Acute Plan: Stable problem. (10) Polysubstance abuse Code(s): F19.10 - OTHER PSYCHOACTIVE SUBSTANCE ABUSE, UNCOMPLICATED Status: Acute Plan: Dental Assistant patient on discharge. No evidence of withdrawal, now day4 of hospitalization. <Corbin Samson - Last Filed: 03/27/17 08:46> Attending Addendum - Attending Addendum I personally evaluated the patient and discussed the management with Dr. Samson at 955 am I agree with the History, Examination, Assessment and Plan documented above with any addition or exceptions noted below. pod #4 s/p laparotomy and repair of duodenal ulcer-recovering well. Will add IS at bedside. Appreciate surgical recs. <Mellisa Graham - Last Filed: 03/27/17 19:04>
[2017-03-27] MEDS ORDERED: FLU VACC QS2017-18 36 mo. & older 0.5 ML SYRINGE IM ONE (09:45)
--- NOTE | 2017-03-27 13:23 | PRG ---
DATE OF SERVICE: 03/27/2017 SUBJECTIVE: I returned for followup after initially evaluating the patient 48 hours ago, as he is in day 4 for evaluation and treatment for an emergency admission where he underwent treatment of a duod enal ulcer perforation. Today, he reports his pain at the right wrist is greatly decreased and he lopez s a small dressing on the site. On physical exam, the patient is obviously much smaller in weight than he was when I treated him almo st 2 weeks ago. Removal of his dressing reveals only faint swelling around his incision with a skin graft in the center of the wound showing nearly 100% take. This dressing is intact. The wound edges are intact. There is only a small amount of erythema near the proximal one-third of the wound around the edges, but no lymphangitis, streaking or tenderness. There is no fluctuance. ASSESSMENT AND RECOMMENDATIONS: Infection, very deep and complex at the right first dorsal compartme nt region, requiring skin resection to the level where he had to have skin graft . No active in fection today. Therefore, after 48 hours or more of no active infection with the IV antibiotics he h as been on this admission, I covered the dressing and he is to remain covered approximately 5 days wh en I will evaluate the patient here in the hospital. If not, I will see him in clinic. Reconsult if necessary.
[2017-03-27] MEDS ORDERED: HYDROcodone/Acetaminophen 7.5/325 mg Tablet PO PRN (15:40)
--- NOTE | 2017-03-27 15:56 | PRG ---
DATE OF SERVICE: 03/27/2017 SUBJECTIVE: Mr. George is postoperative day #4 following laparotomy and repair of perforated pyloric channel ulcer. He was transferred from the Intensive Care Unit to the floor yesterday. He is resti ng comfortably on the surgical floor and complains of appropriate postoperative pain. He has tolerat ed his clear liquid diet. He is voiding uneventfully. PHYSICAL EXAMINATION: VITAL SIGNS: He is afebrile. His pulse varies from 77-104, blood pressure is 143/84. LUNGS: Clear to auscultation. CARDIAC: Regular rate and rhythm. ABDOMEN: Soft with minimal tenderness. His dressing was removed and Telfa enrique were removed. Stap les are intact. Bowel sounds are present and normoactive. LABORATORY STUDIES: His white blood cell count dropped from 20 down to 11.2 [address] hemoglobin is st able at 9.1. Basic metabolic panel is within normal limits. Cultures from his abdomen at the time o f his surgery have only grown Mattie with no other organisms present. ASSESSMENT: He is doing well following laparotomy and repair of his perforated ulcer. I will advanc e him today to a full liquid diet. I will decrease his IV fluids down to 50 mL per hour. I will chantel nge his pain medication from morphine to [place]. I have encouraged him to ambulate. He continues to receive intravenous Diflucan. He is also receiving cefoxitin. He appears to be doing well following his surgery. If he tolerates his full liquid diet, I believe h e will be stable for discharge tomorrow.
[2017-03-27] MEDS: HYDROcodone/Acetaminophen 7.5/325 mg Tablet PO PRN ×2 (16:52→20:45)
[2017-03-27] MEDS: Fluconazole In NaCl,Iso-Osm 200 MG in Premix Bag 1 BAG IVPB SCH ×2 (22:43)
[2017-03-28] MEDS: cefOXitin Sodium 1 GM, Syringe 0.5 ML in Sterile Water 10 ML SLOW IVP SCH ×2 (01:23→06:47)
[2017-03-28] MEDS: HYDROcodone/Acetaminophen 7.5/325 mg Tablet PO PRN ×3 (01:24→14:28)
[2017-03-28 06:15] LABS: Anion Gap 12 mmol/L (10-20); BUN (Urea Nitrogen) 9 mg/dL (8.9-20.6); Calc. Creatinine Clearance 122 mL/min (70-130); Calcium 9.3 mg/dL (7.8-10.44); Carbon Dioxide 26 mmol/L (22-29); Chloride 104 mmol/L (98-107); Estimated GFR-MDRD Greater than 90
[2017-03-28 06:39] LABS: Band 1 % (5-11); Hematocrit 29.9 % (42.0-52.0); Mean Platelet Volume 8.4 fL (7.4-10.4); Neutrophil 66 % (42-75); Red Blood Cell (RBC) Count 2.99 mill/uL (4.70-6.10); White Blood Cell (WBC) Count 8.3 thou/uL (4.8-10.8)
[2017-03-28] MEDS: Sodium Chloride 0.9% 1,000 ML IV SCH (06:48)
[2017-03-28] MEDS: Enoxaparin Sodium 40 MG/0.4 ML SYRINGE SC SCH (08:45)
[2017-03-28] MEDS: Pantoprazole 40 MG VIAL IVP SCH (08:45)
[2017-03-28] MEDS: Vancomycin HCl 1.25 GM in Sodium Chloride 0.9% 250 ML 250 ML IVPB SCH (08:45)
[2017-03-28 08:50] LABS: Vancomycin, Trough 9.6 ug/mL
--- NOTE | 2017-03-28 10:32 | PDOC.FM ---
- Subjective Subjective: Patient is doing well, up walking, tolerating po, passing gas, passing urine. He states his pain is well controlled. - Objective MAR Reviewed: Yes Vital Signs & Weight: Vital Signs (12 hours) Temp Pulse Resp BP BP Pulse Ox 03/28/17 09:17 98.3 F 78 16 143/84 H 93 L 03/28/17 00:15 145/90 H 03/28/17 00:00 98.3 F 79 16 145/90 H 96 Weight Admit Weight 65.7 kg Weight 65.7 kg Most Recent Monitor Data Heart Rate from ECG 97 NIBP 134/83 NIBP BP-Mean 78 Respiration from ECG 18 SpO2 96 I&O: 03/27/17 03/28/17 03/29/17 06:59 06:59 06:59 Intake Total 2340 700 Output Total 750 Balance 1590 700 Result Diagrams: 03/28/17 04:55 03/28/17 04:55 <Corbin Samson M - Last Filed: 03/28/17 10:30> - Objective Vital Signs & Weight: Vital Signs (12 hours) Temp Pulse Resp BP BP Pulse Ox 03/28/17 09:17 98.3 F 78 16 143/84 H 93 L 03/28/17 00:15 145/90 H 03/28/17 00:00 98.3 F 79 16 145/90 H 96 Weight Admit Weight 65.7 kg Weight 65.7 kg Most Recent Monitor Data Heart Rate from ECG 97 NIBP 134/83 NIBP BP-Mean 78 Respiration from ECG 18 SpO2 96 I&O: 03/27/17 03/28/17 03/29/17 06:59 06:59 06:59 Intake Total 2340 700 Output Total 750 Balance 1590 700 Result Diagrams: 03/28/17 04:55 03/28/17 04:55 <Han Triana - Last Filed: 03/28/17 11:06> Phys Exam - Physical Examination Constitutional: NAD HEENT: moist MMs, sclera anicteric Neck: no nodes, supple Respiratory: no wheezing, no rales, no rhonchi, clear to auscultation bilateral Cardiovascular: RRR, no significant murmur, no rub Gastrointestinal: soft, non-tender, no distention, positive bowel sounds Midline incision Musculoskeletal: no edema Right hand bandaged Neurological: non-focal, moves all 4 limbs Lymphatic: no nodes Psychiatric: normal affect Skin: no rash <Corbin Samson Gary - Last Filed: 03/28/17 10:30> Dx/Plan (1) Perforated duodenal ulcer Code(s): K26.5 - CHRONIC OR UNSPECIFIED DUODENAL ULCER WITH PERFORATION Status : Acute Plan: Per surgery, patient may be ok to go home today. Plan to discuss with surgery for outpatient antifungal regimen.. (2) Tachycardia Code(s): R00.0 - TACHYCARDIA, UNSPECIFIED Status: Acute Plan: Has resolved now. (3) Macrocytic anemia Code(s): D53.9 - NUTRITIONAL ANEMIA, UNSPECIFIED Status: Acute Plan: Stable issue (4) PATRICIA (acute kidney injury) Code(s): N17.9 - ACUTE KIDNEY FAILURE, UNSPECIFIED Status: Acute Plan: Resolved (5) Hyperkalemia Code(s): E87.5 - HYPERKALEMIA Status: Acute Plan: Resolved (6) Hyponatremia Code(s): E87.1 - HYPO-OSMOLALITY AND HYPONATREMIA Status: Acute Plan: Resolved (7) Mattie albicans infection Code(s): B37.9 - CANDIDIASIS, UNSPECIFIED Status: Acute Plan: Continue fluconazole. Discuss with surgery if this can be taken PO versus needing IV transfusion (8) Cellulitis of right hand Code(s): L03.113 - CELLULITIS OF RIGHT UPPER LIMB Status: Acute Plan: Continue with vancomycin. Will discuss with ortho about setting up patient to see outpatient. Will transition to PO med for MRSA. (9) Cholelithiasis Code(s): K80.20 - CALCULUS OF GALLBLADDER W/O CHOLECYSTITIS W/O OBSTRUCTION Status: Acute Plan: Stable problem. 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 Samson. I agree with the History, Examination, Assessment and Plan documented above with any addition or exceptions noted below. Patient doing well this morning. Reports passing gas, tolerating diet well. Denies pain. If cleared by surgery, he can be discharged home later today with oral antibiotic therapy to complete course. <Han Triana - Last Filed: 03/28/17 11:06>
[2017-03-28 13:19] VITALS: BP 143/85; TEMP 98
--- NOTE | 2017-03-31 08:13 | DIS-2 ---
DATE OF ADMISSION: 03/23/2017 DATE OF DISCHARGE: 03/28/2017 ADMITTING ATTENDING: Han Triana MD DISCHARGE ATTENDING: Han Triana MD RESIDENT: Corbin Samson M.D. PROCEDURES: 1. Chest x-ray on 03/23/2017, impression: No active cardiopulmonary abnormalities are demonstrated. 2. Abdominal pelvis CT, impression: Cholelithiasis, small left renal cysts, nonspecific free fluid in the abdomen and pelvis. 3. Chest CTA, impression: No CT evidence of PE. 4. Abdominal ultrasound, impression: Cholelithiasis, no sonographic evidence of cholecystitis or bi liary dilation. There is nonspecific small volume free fluid adjacent to the left lobe of liver whic h may be inflammatory in nature. Clinical correlation required. This could be best assessed by a CT as clinically indicated. 5. EGD with biopsy, impression: Perforated duodenal ulcer with recommendation of proceeding to surg sylvie. The esophagus was normal, stomach was normal including retroflex view. Pylorus was normal. Al so was present on the anterior wall of the first portion of the duodenum, second portion of duodenum was normal. Biopsies were taken to rule out Helicobacter pylori. 6. Repeat chest x-ray on 03/23/2017, impression: Interval intubation and enteric catheter placement . 7. Exploratory laparotomy with repair of perforated pyloric channel ulcer with omental patch and ext ensive irrigation of abdominal contents. There was a large volume of creamy material present diffuse ly within the abdominal cavity. Ulcer was immediately apparent and pyloric channel was about a cm in diameter. The fibrinous debris were debrided. It was then closed with interrupted sutures. Omenta l flap was layered across the repair and sutured in place. The abdominal cavity was irrigated. The fascia was then closed. The patient tolerated the procedure well. 8. Pathological exam of ulcer unremarkable. Corpus type mucosa with no H. pylori organisms identifi ed. 9. Chest x-ray on 03/24/2017, impression: Mildly prominent pulmonary vessels with patchy interstiti al opacity. 10. Chest x-ray on 03/25/2017, impression: Layering bilateral pleural effusion. Endotracheal tip a nd enteric tip were similar. 11. Chest x-ray on 03/27/2017, impression: Opacity in right lower lobe in septal area; in left lowe r lobe, may represent areas of atelectasis or pneumonia. Radiographic appearance of chest is stable and unchanged since previous day exam. CONSULTATIONS: 1. Dr. Rio Walden, GI. 2. Dr. Gideon Rene and Dr. Kranthi Carrasco, General Surgery. 3. Dr. Wan Mayfield, Ortho. HOSPITAL COURSE: This is a 46-year-old man with history of polysubstance abuse, hepatitis C, who was recently hospitalized for arm cellulitis, presented to the emergency department on the day of admiss [facility] for 1-day history of abdominal pain. The patient while in the ED, the ER physician had to leave to run a code. When he returned, he found the patient newly altered. Obtaining a UDS at that time s howed that patient was positive for both cannabinoid and meth. CT scan at that time found free air a nd fluid in the abdomen. As a result, he was brought to the EJD suite to be evaluated by GI. A duod enal ulcer perforation was found. As a result, he was then brought to the OR where the perforation w as repaired. After repair, he tolerated the procedure well and he was transferred to ICU. He spent 1 day intubated as he was agitated as he was coming off sedation. After 1 day of sedation, he was we aned off the respirator and tolerated breathing on his own well. After that, the following day, he w as transferred to the surgical floor. He continued to improve on the surgical floor for the next 2 d ays. He was seen by Dr. Wan Mayfield who did an I&D of his right hand on his previous admission. Dr. Mayfield recommend follow up with this office in 5 days after discharge and to continue with his Bactrim, which the patient stated that he has at home which he did not finish due to hospitalization with this new issue. As for his stomach ulcer, he was continued on cefoxitin and vancomycin, which also covers for his right hand wound. He was afebrile while here and General Surgery felt that he re covered well and recommend follow up in 1 week after discharge to have his abdominal marcela removed. By the day of discharge, the patient was up and walking. Pain was well tolerated. He was able to take down p.o. intake and had regular bowel movement. He was counseled on his drug use and advised o n followup with his specialist which the patient agrees. PRIMARY DIAGNOSIS: Perforated duodenal ulcer. SECONDARY DIAGNOSES: 1. Tachycardia, which has resolved after surgery. 2. Microcytic anemia. Stable issue. 3. Acute kidney injury, resolved issue after surgery. 4. Hyperkalemia, resolved issue on discharge. 5. Hyponatremia, resolved issue on discharge. 6. Mattie albicans infection. Cultures of peritoneal fluid was positive for Mattie albicans for w hich he was continued on fluconazole at discharge for 1 week. 7. Cellulitis of right hand. Was continued on his home Bactrim at the time of discharge. 8. Cholelithiasis, unlikely to be found incidentally while evaluating for abdominal pain, unlikely t o be the contributing cause, considered to be a stable problem. 9. Polysubstance abuse. The patient was counseled on discharge. He had no evidence of withdrawal w hile here. DISCHARGE MEDICATIONS: 1. Fluconazole 200 mg p.o. daily. 2. [place] 1 tablet every 8 hours as needed for pain. 3. Clindamycin 300 mg p.o. q.8 hours. DISCONTINUED MEDICATION: Ketorolac. DISPOSITION: Stable. FOLLOWUP: 1. Follow up with Dr. Wan Mayfield within 5 days. 2. Follow up with Dr. Carrasco within 1 week. 3. Follow up with Dr. [facility] resident within a week. DIET: Soft diet, avoiding red meat and hard bread. ACTIVITY: Avoid heavy lifting and straining until followup with surgery.
[2017-03-31 20:08] LABS: H. pylori IgA ABS Less than 9.0 units (0.0-8.9); H. pylori IgG ABS Less than 0.9 U/mL (0.0-0.8); H. pylori IgM ABS Less than 9.0 units (0.0-8.9)
== END 2017-03-28 15:48 | disposition home or self-care (01) | DRG 329 ==
LOC: ERS 06:53 → SDC 18:54 → CCU 19:56 → SURG B 03-26 18:30
PROVIDERS: ADMIT Student in an Organized Health Care Education/Training Program; ATTEND Student in an Organized Health Care Education/Training Program
PROC: 0DU907Z Supplement Duodenum with Autologous Tissue Substitute, Open Approach (ICD-10-PCS; principal; 2017-03-23)
PROC: 0DB68ZX Excision of Stomach, Via Natural or Artificial Opening Endoscopic, Diagnostic (ICD-10-PCS; 2017-03-23)
PROC: 5A1945Z Respiratory Ventilation, 24-96 Consecutive Hours (ICD-10-PCS; 2017-03-23)
DX: K26.5 Chronic or unspecified duodenal ulcer with perforation (principal); K65.9 Peritonitis, unspecified; J96.90 Respiratory failure, unspecified, unspecified whether with hypoxia or hypercapnia; G92 Toxic encephalopathy; N17.9 Acute kidney failure, unspecified; E87.1 Hypo-osmolality and hyponatremia; L03.113 Cellulitis of right upper limb; R00.0 Tachycardia, unspecified; F17.210 Nicotine dependence, cigarettes, uncomplicated; F19.10 Other psychoactive substance abuse, uncomplicated; E83.52 Hypercalcemia; D53.9 Nutritional anemia, unspecified; E87.5 Hyperkalemia; K80.20 Calculus of gallbladder without cholecystitis without obstruction; B37.9 Candidiasis, unspecified
CPT/HCPCS: 36415; 71010; 71275; 74177; 76705; 80048; 80053; 80202; 80306; 80307; 81003; 82805; 83605; 83690; 85007; 85025; 85027; 87040; 87070; 87086; 87205; 88305; 88312; 93005; 94002; 94003; 94640; 94760; A4216; C9113; J0694; J1170; J1450; J1630; J1650; J1885; J2001; J2060; J2250; J2270; J2405; J2550; J2704; J3010; J3370; J3411; J7042; J7050; J7620

== ENCOUNTER 2017-04-07 23:40 | Emergency (ER) | payer SELFPAY ==
[2017-04-08 00:26] LABS: #Basophils 0.1 thou/uL (0.0-0.2); #Eosinphils 0.3 thou/uL (0.0-0.7); #Lymphocytes 2.2 thou/uL (1.20-3.40); #Monocytes 0.6 thou/uL (0.11-0.59); #Neutrophils 7.8 thou/uL (1.40-6.50); %Basophils 1.2 % (0.0-1.0); %Eosinophils 2.4 % (0.0-10.0); %Lymphocytes 19.6 % (21.0-51.0); %Monocytes 5.8 % (0.0-10.0); Hemoglobin 11.7 g/dL (14.0-18.0); Mean Corpuscular HGB CONC 32.3 g/dL (32.0-36.0); Mean Corpuscular Hemoglobin 32.5 pg (27.0-31.0); Mean Platelet Volume 8.1 fL (7.4-10.4); Platelet Count 543 thou/uL (130-400); RBC Distribution Width 13.4 % (11.5-14.5); Red Blood Cell (RBC) Count 3.61 mill/uL (4.70-6.10)
[2017-04-08 00:46] LABS: ALT (SGPT) 25 U/L (8-55); AST (SGOT) 23 U/L (5-34); Albumin 4.4 g/dL (3.5-5.0); Alkaline Phosphatase 71 U/L (40-150); Anion Gap 15 mmol/L (10-20); BUN (Urea Nitrogen) 17 mg/dL (8.9-20.6); Bilirubin, Total 0.3 mg/dL (0.2-1.2); Calc. Creatinine Clearance 0 mL/min (70-130); Calcium 10.1 mg/dL (7.8-10.44); Carbon Dioxide 25 mmol/L (22-29); Chloride 104 mmol/L (98-107); Estimated GFR-MDRD 83; Globulin 3.9 g/dL (2.4-3.5); Glucose 113 mg/dL (70-105); Protein, Total 8.3 g/dL (6.0-8.3); Sodium 140 mmol/L (136-145)
== END 2017-04-08 02:37 | disposition left against medical advice (07) ==
LOC: ERS 23:40
DX: Z53.21 Procedure and treatment not carried out due to patient leaving prior to being seen by health care provider (principal)
CPT/HCPCS: 36415; 80053; 85025; 87040

== ENCOUNTER 2017-04-10 19:28 | Day surgery (SDC) | payer SELFPAY ==
[2017-04-10 19:49] LABS: #Basophils 0.1 thou/uL (0.0-0.2); #Eosinphils 0.1 thou/uL (0.0-0.7); #Lymphocytes 2.4 thou/uL (1.20-3.40); #Monocytes 0.5 thou/uL (0.11-0.59); %Basophils 1.5 % (0.0-1.0); %Eosinophils 2.1 % (0.0-10.0); %Lymphocytes 33.8 % (21.0-51.0); %Monocytes 6.7 % (0.0-10.0); %Neutrophils 55.9 % (42.0-75.0); Hemoglobin 12.5 g/dL (14.0-18.0); Mean Corpuscular HGB CONC 32.4 g/dL (32.0-36.0); Mean Corpuscular Hemoglobin 32.7 pg (27.0-31.0); Mean Platelet Volume 8.1 fL (7.4-10.4); Platelet Count 487 thou/uL (130-400); RBC Distribution Width 13.3 % (11.5-14.5); Red Blood Cell (RBC) Count 3.82 mill/uL (4.70-6.10); White Blood Cell (WBC) Count 7.1 thou/uL (4.8-10.8)
[2017-04-10] MEDS ORDERED: Gentamicin 80 MG/2 ML VIAL ONE (20:28)
[2017-04-10] MEDS ORDERED: Nystatin Ointment 15 GM TUBE TOP SCH (20:30)
[2017-04-10] MEDS ORDERED: Nystatin Cream 30 GM TUBE TOP SCH (20:30)
--- NOTE | 2017-04-11 01:25 | DIS ---
TIME AND DATE OF ADMISSION: 1900 hours, 04/10/2017. TIME AND DATE OF DISCHARGE: 2130 hours, 04/10/2017. ADMISSION DIAGNOSES: Possible abscess with sepsis, right hand wound after 30 days ago having wound c are and closure and grafting, and 14 days ago, leaving the hospital with duodenal ulcer, emergent ope rative treatment in the ICU care. DISCHARGE DIAGNOSES: 1. No abscess, no sepsis with normal white blood cell count, and no purulence. 2. Cellulitis at this time possibly related to fungal overgrowth after neglected the bacterial wound care. HOSPITAL COURSE: The patient here with significant other and report that he has been taking Keflex, antibiotics and has run out of clindamycin. He has been picking his wound as he says "with multiple areas of skin and I removed." Today, there was irritation around his wound, but no abscess, no lymphangitic streaking and no evidence of sepsis or purulence. For this reason, we made the discharg e diagnoses above and make the following home recommendations: 1. Regular diet. 2. Today in the hospital, he was given gentamycin IV, which is one of the antibiotics that the methi cillin-resistant Staph was sensitive too, 80 mg x1. We cleaned his wound and removed all sutures and at that point we were able to normal saline soaked gauze. There was no fluctuance, no express ible infection, only faint erythema. Most of the wound was clean in a 1 cm rim and it was somewhat t hickened and beefy red, which might be a fungal overgrowth. Therefore, his final wound care involved a rim of nystatin after the gentamycin was given, covering the actual wound itself where the skin gr aft is becoming somewhat desiccated as his wound edges after removed the sutures with Xeroform, under 4x4s, under Kerlix, under Coban. I showed he and his significant other how to change his dressing i nstructed, this should be done Thursday night or Thursday morning and return to our clinic in Thursday ap proximately 1200 hours for reevaluation. He was also given new antibiotics Bactrim DS 2 tablets twic e a day for 10 days and doxycycline 100 mg one tablet twice a day for 10 days. Enough tubes of bacit racin will be given for care as an outpatient for at least every other day wound care.
== END 2017-04-10 21:19 | disposition home or self-care (01) ==
LOC: SDC 19:28
PROVIDERS: ATTEND Orthopaedic Surgery Hand Surgery
DX: L03.113 Cellulitis of right upper limb (principal); F17.200 Nicotine dependence, unspecified, uncomplicated; Z53.9 Procedure and treatment not carried out, unspecified reason; Z79.2 Long term (current) use of antibiotics; Z79.899 Other long term (current) drug therapy; Z98.890 Other specified postprocedural states
CPT/HCPCS: 36415; 85025; 85652; J1580; J3370